=== PATIENT | female | born 1965 | race Caucasian/White ===

== ENCOUNTER → 2017-11-10 | Outpatient (CLI) | payer OTHER ==
[~2017-11-10] MED LIST: ACET-1256 PO; BACL10TA PO; CHOLCAP5 PO; GLAT1INJ SQ; METO50TA8 PO; NTRGSL/4 PO; SOLI10TA2 PO; SPIR25TA PO
--- NOTE | 2017-11-11 12:46 | MAMMOGRAPHY REPORT ---
BILATERAL DIGITAL SCREENING MAMMOGRAM TOMOSYNTHESIS WITH CAD: 11/10/2017 CLINICAL HISTORY: Routine screening. Patient has no complaints. TECHNIQUE: Breast tomosynthesis in addition to standard 2D mammography was performed. Current study was also evaluated with a Computer Aided Detection (CAD) system. COMPARISON: Comparison is made to exam dated: 11/07/2016 mammogram - [facility]. BREAST COMPOSITION: There are scattered areas of fibroglandular density in both breasts. FINDINGS: The parenchymal pattern is unchanged. No developing mass, architectural distortion or clus ter of suspicious microcalcifications is seen in either breast. IMPRESSION: ACR BI-RADS CATEGORY 2: BENIGN There is no mammographic evidence of malignancy. A 1 year screening mammogram is recommended. The pa tient will receive written notification of the results. Approximately 10% of breast cancers are not detected with mammography. A negative mammographic report should not delay biopsy if a clinically suggestive mass is present. Estephania Fernandez M.D. ay/:11/10/2017 16:14:50 Advertising Consultant: Jaci LOZADA(Jhonny)(M), [facility] letter sent: Normal 1/2 BI-RADS Code: ACR BI-RADS Category 2: Benign
== END | disposition home or self-care (01) ==
LOC: C.MAMM 11:19 → MERGE 11:25 → UNMERGE 11:25
PROVIDERS: ATTEND Obstetrics & Gynecology
DX: Z12.31 Encounter for screening mammogram for malignant neoplasm of breast (principal)

== ENCOUNTER → 2017-11-18 | Outpatient (CLI) | payer OTHER ==
[~2017-11-18] MED LIST changes: +GADAVIST IV PRN
--- NOTE | 2017-11-18 15:30 | DIAGNOSTIC IMAGING REPORT ---
THORACIC SPINE 3 VIEWS ROUTINE HISTORY: Pain. M54.14 Thoracic radiculopathy COMPARISON: None. FINDINGS: There is no fracture. No subluxation. Mild degenerative disc change. No evidence for compression deformity. IMPRESSION: Mild degenerative change. No acute process. The above report was generated using voice recognition software. It may contain grammatical, syntax or spelling errors. Electronically signed by: Conner Moreno M.D. 11/18/2017 3:29 PM Dictated Date/Time: 11/18/2017 3:28 PM
--- NOTE | 2017-11-18 17:11 | DIAGNOSTIC IMAGING REPORT ---
BRAIN COMBO FOR MS HISTORY: Demyelinating disorder G35 Multiple sclerosis TECHNIQUE: Multiplanar multisequence MRI of the brain was performed both before and after the intravenous administration of contrast. COMPARISON STUDY: 11/01/2016 FINDINGS: There are no areas of restricted diffusion to suggest acute infarction. The midline structures are intact. The paranasal sinuses are clear. The mastoid air cells are clear. The ventricles and sulci are within normal limits for age. There is no mass, hematoma, midline shift. The major vascular flow-voids at the skull base are well maintained. Postcontrast sequences show no areas of abnormal enhancement. Small focus of increased signal extreme posterior right optic radiations unchanged given differences in technique. No new or interval process. No evidence for abnormal postcontrast enhancement. IMPRESSION: 1. Small focus of increased signal posterior right optic radiations essentially unchanged from the prior study. 2. No evidence for new interval or progressive process. 3. No abnormal postcontrast enhancement. The above report was generated using voice recognition software. It may contain grammatical, syntax or spelling errors. Electronically signed by: Conner Moreno M.D. 11/18/2017 5:10 PM Dictated Date/Time: 11/18/2017 5:03 PM
--- NOTE | 2017-11-18 17:17 | DIAGNOSTIC IMAGING REPORT ---
MRI CERVICAL SPINE COMBO CLINICAL HISTORY: G35 Multiple sclerosis BILATERAL ARM AND HAND TINGLING. TECHNIQUE: Sagittal and axial T1, T2 and STIR images were obtained. Images were acquired before and after the administration of 10.1 cc of intravenous Gadavist. COMPARISON STUDY: 11/01/2016 There are no suspicious areas of marrow replacement. No intrinsic cervical cord lesions are visualized. C2-3: There is no evidence of disc bulge or focal herniation. There is no spinal or foraminal stenosis. C3-4: There is no evidence of disc bulge or focal herniation. There is no spinal or foraminal stenosis. C4-5: There is a small central disc protrusion. There is minimal effacement of the anterior subarachnoid space. There is no significant spinal or foraminal narrowing C5-6 :There is a small right posterior central disc protrusion with minimal secondary cord deformity. There is mild spinal canal narrowing. There is no significant foraminal narrowing C6-7: There is a minimal circumferential disc bulge. There is no definite acute spinal or foraminal stenosis C7-T1: There is no evidence of disc bulge or focal herniation. There is no evidence of spinal or foraminal stenosis. Postcontrast images reveal no pathologically enhancing lesions. IMPRESSION: 1. No cervical cord demyelinating plaques are visualized. No evidence of pathologic enhancement. 2. Small central disc protrusion at the C4-5 level, similar to the preceding study 3. Small right paracentral disc protrusion at the C5-6 level, similar to the prior study. Electronically signed by: Marco Rubio M.D. 11/18/2017 5:16 PM Dictated Date/Time: 11/18/2017 5:11 PM
== END | disposition home or self-care (01) ==
LOC: C.MRI 14:54
PROVIDERS: ATTEND Psychiatry & Neurology Neurology
DX: M54.14 Radiculopathy, thoracic region (principal); G35 Multiple sclerosis; M50.20 Other cervical disc displacement, unspecified cervical region

== ENCOUNTER → 2017-12-01 | Day surgery (SDC) | payer OTHER ==
[2017-11-19 15:00] VITALS: BMI 37.0
[~2017-12-01] VITALS: Ht 165.1 cm; Wt 101.8 kg
[~2017-12-01] MED LIST changes: -ACET-1256 PO; -GADAVIST IV PRN; +LIDOCAINE HCL 2% 2 ML VIAL (20MG/ML) ONE; +PROPOFOL IV EMULSION 10 MG/ML 20 ML VIAL ONE
[2017-12-01 13:54] VITALS: Ht 165.1 cm; Wt 101.8 kg
--- NOTE | 2017-12-01 14:28 | Endo History and Physical ---
History & Physical Date of Service: December 01, 2017. Chief Complaint: SCREENING Referring Physician: DR. HILLMAN History of Present Illness For colonoscopy Past Medical History Neurological Disorder, Arthritis, Hypertension Past Surgical History Hx Cardiac Surgery: No Hx Internal Defibrillator: No Hx Pacemaker: No Hx Abdominal Surgery: Yes (C section, yoon) Hx of Implantable Prosthesis: No Hx Cancer Surgery: No Hx Thoracic Surgery: No Hx Orthopedic: No Hx Urinary Tract Surgery: No Family History None Social History Smoking Status: Never Smoker Hx Substance Use: No Hx Alcohol Use: No Allergies Coded Allergies: Sulfa Antibiotics (Unverified Allergy, Mild, rash, 12/01/17) Current Medications Reported Home Medications Medications Dose Route/Sig Max Daily Dose Days Date Category Aldactone (Spironolactone) 25 Mg Tab 25 Mg PO DAILY 07/09/17 Reported Lioresal (Baclofen) 10 Mg Tab 20 Mg PO TID 02/06/17 Reported Toprol-Xl (Metoprolol Succinate) 50 Mg Tabcr 50 Mg PO DAILY 02/01/17 Reported Vitamin D3 (Cholecalciferol) 5,000 Unit Cap 5,000 Inter.unit PO DAILY 05/01/16 Reported Vesicare (Solifenacin) 10 Mg Tab 10 Mg PO DAILY 05/01/16 Reported Nitrostat (Nitroglycerin) 0.4 Mg Tab 0.4 Mg PO UD PRN 04/23/16 Reported Copaxone (Glatiramer Acetate) 40 Mg/Ml Inj 40 Mg SQ MWF 02/13/15 Reported Vital Signs Weight (Kilograms): 101.82 Height (Feet): 5 Height (Inches): 5 Date Time Temp Pulse Resp B/P (MAP) Pulse Ox O2 Delivery O2 Flow Rate FiO2 12/01/17 14:01 36.5 76 20 155/103 (120) 20 Room Air Physical Exam General Appearance: + obese Respiratory/Chest: Respiratory effort: no dyspnea Cardiovascular: Heart Auscultation: RRR Abdomen: Inspection & Palpation: soft Assessment and Plan For screening colonoscopy
--- NOTE | 2017-12-01 14:53 | Discharge Instructions ---
Endoscopy Patient Instructions Date / Procedure(s) Performed December 01, 2017. Colonoscopy Allergy Information Coded Allergies: Sulfa Antibiotics (Unverified Allergy, Mild, rash, 12/01/17) Discharge Date / Findings December 01, 2017. Hemorrhoids Medication Instructions Restart Stopped Medication(s): resume meds Reported Home Medications Medications Dose Route/Sig Max Daily Dose Days Date Category Aldactone (Spironolactone) 25 Mg Tab 25 Mg PO DAILY 07/09/17 Reported Lioresal (Baclofen) 10 Mg Tab 20 Mg PO TID 02/06/17 Reported Toprol-Xl (Metoprolol Succinate) 50 Mg Tabcr 50 Mg PO DAILY 02/01/17 Reported Vitamin D3 (Cholecalciferol) 5,000 Unit Cap 5,000 Inter.unit PO DAILY 05/01/16 Reported Vesicare (Solifenacin) 10 Mg Tab 10 Mg PO DAILY 05/01/16 Reported Nitrostat (Nitroglycerin) 0.4 Mg Tab 0.4 Mg PO UD PRN 04/23/16 Reported Copaxone (Glatiramer Acetate) 40 Mg/Ml Inj 40 Mg SQ MWF 02/13/15 Reported Provider Instructions Activity Restrictions - No exercising or heavy lifting for 24 hours. - Do not drink alcohol the day of the procedure. - Do not drive a car or operate machinery until the day after the procedure. - Do not make any important decisions or sign important papers in 24 hours after the procedure. Following Day: - Return to full activity which may include returning to work/school. Diet Start your diet with liquids and light foods (jello, soup, juice, toast). Then eat your usual diet if not nauseated. Treatment For Common After Affects For mild abdominal pain, bloating, or excessive gas: - Rest - Eat lightly - Lie on right side Follow-Up Information Follow-up with DR. HILLMAN as scheduled Anesthesia Information What You Should Know You have had a procedure that required some medicine to reduce anxiety and discomfort. This treatment is called moderate sedation. After receiving the treatment, you may be sleepy, but you will be able to breathe on your own. The effects of the treatment may last for several hours. Follow these instructions along with Activity/Diet recommendations noted above: * Do NOT do anything where dizziness or clumsiness would be dangerous. * Rest quietly at home today, then you can be up and about tomorrow. * Have a responsible person stay with you the rest of today. * You may have had an I.V. today. If so, you may take the dressing off later today. Recommendations Call your doctor if: * Trouble breathing * Continuous vomiting for more than 24 hours * Temperature above 101 degrees * Severe abdominal pain or bloating * Pain not relieved by pain medicine ordered * There is increased drainage or redness from any incision * A large amount of rectal bleeding greater than 2-3 tablespoons. (If you had a polyp/s removed or have hemorrhoids, a small amount of blood - from the rectum is to be expected.) * You have any unanswered questions or concerns. IN THE EVENT OF A SERIOUS EMERGENCY, GO TO THE NEAREST EMERGENCY ROOM Your discharge instructions were prepared by provider Arpan Heller. Patient Instructions Signature Page Danyelle Warren Patient (or Guardian) Signature/Date: I have read and understand the instructions given to me by my caregivers. Caregiver/RN/Doctor Signature/Date: The above-named patient and/or guardian has received patient instructions on this date. + Original Patient Signature Page (only) stays with chart. Please make copy for patient.
--- NOTE | 2017-12-01 14:56 | GI REPORT ---
Patient Name: Danyelle Warren Procedure Date: 12/01/2017 2:34 PM Date of : 1965 Admit Type: Outpatient Age: 52 Gender: Female Attending MD: Arpan Heller MD Procedure: Colonoscopy Providers: Arpan Heller MD Referring MD: Alexia Hutchison Indications: Screening for colorectal malignant neoplasm Medicines: Propofol total dose 400 mg IV, Lidocaine 40 mg IV Complications: No immediate complications. Estimated Blood Loss: Estimated blood loss: none. Procedure: Pre-Anesthesia Assessment: - Prior to the procedure, a History and Physical was performed, and patient medications, allergies and sensitivities were reviewed. The patient's tolerance of previous anesthesia was reviewed. - The risks and benefits of the procedure and the sedation options and risks were discussed with the patient. All questions were answered and informed consent was obtained. After I obtained informed consent, the scope was passed under direct vision. Throughout the procedure, the patient's blood pressure, pulse, and oxygen saturations were monitored continuously. The scope was introduced through the anus and advanced to the cecum, identified by appendiceal orifice and ileocecal valve. The colonoscopy was performed without difficulty. The patient tolerated the procedure well. The quality of the bowel preparation was excellent. Findings: Non-bleeding internal hemorrhoids were found during endoscopy. The hemorrhoids were mild. Impression: - Non-bleeding internal hemorrhoids. - No specimens collected. Recommendation: - Discharge patient to home (ambulatory). - Continue present medications. - Repeat colonoscopy in 10 years for screening purposes. - Return to primary care physician PRN. Arpan Heller M.D. Arpan Heller MD 12/01/2017 2:55:45 PM This report has been signed electronically. Note Initiated On: 12/01/2017 2:34 PM Number of Addenda: 0 I attest to the content of the Intraoperative Record and orders documented therein, exceptions below {[id number]}
--- NOTE | 2017-12-01 15:12 | Anesthesiology Progress Note ---
Anesthesia Post Op Note Date & Time December 01, 2017 at 15:11 Vital Signs Pain Intensity: 0 Vital Signs Past 12 Hours Date Time Temp Pulse Resp B/P (MAP) Pulse Ox O2 Delivery O2 Flow Rate FiO2 12/01/17 14:54 73 20 121/77 (92) 97 Room Air 12/01/17 14:01 36.5 76 20 155/103 (120) 20 Room Air Notes Mental Status: alert / awake / arousable, participated in evaluation Pt Amnestic to Procedure: Yes Nausea / Vomiting: adequately controlled Pain: adequately controlled Airway Patency, RR, SpO2: stable & adequate BP & HR: stable & adequate Hydration State: stable & adequate Anesthetic Complications: no major complications apparent
[2017-12-01 15:28] VITALS: BP 139/102; PULSE 67; O2SAT 99
== END | disposition home or self-care (01) ==
LOC: C.GI 13:38
PROVIDERS: ATTEND Internal Medicine Gastroenterology
DX: Z12.11 Encounter for screening for malignant neoplasm of colon (principal); K64.8 Other hemorrhoids; M19.90 Unspecified osteoarthritis, unspecified site; G35 Multiple sclerosis; I10 Essential (primary) hypertension; Z88.2 Allergy status to sulfonamides; Z79.899 Other long term (current) drug therapy

== ENCOUNTER 2025-05-09 11:06 | Observation (INO) ==
[2025-05-09 11:55] LABS: Hematocrit (blood only) 40.2 % (37.0-47.0); Hemoglobin 13.0 g/dl (12.0-16.0); Immature Granulocytes # (auto) 0.10 K/uL (0.01-0.20); Immature Granulocytes % (auto) 0.6 %; Mean Corpuscular Hemoglobin 29.0 pg (25.0-34.0); Mean Corpuscular Volume 89.5 fL (80.0-100.0); Platelet Count 419 K/uL (130-400); RDW Standard Deviation 44.6 fL (36.4-46.3); Red Blood Count 4.49 M/uL (4.20-5.40); White Blood Count 17.33 K/ul (4.8-10.8)
[2025-05-09] MEDS: SODIUM CHLORIDE 0.9% 500 ML IV ONE (12:15)
--- NOTE | 2025-05-09 12:15 | Emergency Department Note ---
Impression & Plan Recurrent pneumonia, Immunocompromised, Multiple sclerosis ED Provider Note NAME: STEPHANIE IRVING AGE: 59 SEX: F : 1965 ARRIVES VIA: Walk-In INFORMANT: Patient ED PROVIDER(S): Marcelo Tobias MD CHIEF COMPLAINT: Shortness of breath PLAN: Disposition: Admit MEDICAL DECISION MAKING: The present pleasant 59-year-old woman with a past medical history of MS on ocrelizumab who presents to the emergency department via walk-in accompanied by his partner for evaluation of worsening cough congestion shortness of breath in setting of being treated with the patient outpatient Augmentin and azithromycin 2 weeks ago without any improvement. Patient denies any measured fevers. She denies nausea, vomiting or diarrhea. She denies any urinary symptoms. On evaluation, the patient is no distress, afebrile heart in the 90s and blood pressure 160/100s vital signs otherwise stable. She appears euvolemic to dry. She exhibits wheezes of bilateral lung kirk with intermittent rhonchi. EKG without overt acute ischemia. CXR negative for acute cardiopulmonary process per my personal preliminary review/interpretation. WBC 17K with neutrophilia and a left shift. Lactic acid increased from normal 6 weeks ago. H/H within normal limits. Platelets of 40 19K, nonspecific and likely reactive. Chemistry without metabolic acidosis. Electrolytes and LFTs unremarkable. High-sensitivity troponin 12.5, within normal limits. Lipase is not elevated. Procalcitonin is mildly elevated at 0.77, TSH within normal limits. D-dimer was elevated at 1130 and so CTA of the chest was obtained. CTA of the chest was negative for PE however patchy right lung ground glass opacities are suspicious for infection/pneumonia. Given the patient was recently treated with Augmentin and azithromycin without improvement in symptoms in setting of any compromise status and patient agrees to plan for admission for further management. Blood cultures obtained and treatment initiated with IV Zosyn and doxycycline. MRSA swab is pending. Case was discussed with Dr. Low, [facility] hospitalist, who will evaluate the patient for admission. Further management per admitting team. Triage Nursing notes reviewed and agree them. Prior/external medical records reviewed Vital Signs: reviewed Differential diagnosis: Reactive airway disease, pneumonia, pneumothorax, COPD, CHF, infections, cardiac ischemia, pulmonary embolism, musculoskeletal, gastrointestinal, as well as other pathologies. ER treatment provided: See below. Diagnostics interpreted by me: Cardiac Monitoring: An order for continuous cardiac monitoring was placed and demonstrated normal sinus rhythm, 75 bpm, no ectopy. Laboratory studies: See below Imaging studies: See below Consultation(s): Case was discussed with Dr. Low, [facility] hospitalist, who will evaluate the patient for admission. HPI: Per MDM. ROS: See above HPI for pertinent positives & negatives. A total of 10 systems reviewed and were otherwise negative. VITALS:See Below PHYSICAL EXAMINATION: GENERAL: Awake, alert, in no distress HENT: Normocephalic, atraumatic. Oropharynx with dry mucous membranes and otherwise unremarkable. EYES: Normal conjunctiva. Sclera non-icteric. NECK: Supple. No nuchal rigidity. FROM. No JVD. RESPIRATORY: Wheezes of bilateral lung kirk with intermittent rhonchi. Normal respiratory effort. CARDIAC: Regular rate, normal rhythm. Extremities warm and well perfused. Pulses equal. ABDOMEN: Soft, non-distended. No tenderness to palpation. No rebound or guarding. No masses. MUSCULOSKELETAL: Chest examination reveals no tenderness. The back is symmetrical on inspection without obvious abnormality. There is no CVA tenderness to palpation. No joint edema. LOWER EXTREMITIES: Calves are equal size bilaterally and non-tender. No edema. No discoloration. NEURO: Normal sensorium. No sensory or motor deficits noted. SKIN: No rash or jaundice noted. Marcelo Tobias MD Past Med/Surg History Problem List Immunocompromised (Acute) Recurrent pneumonia (Acute) UTI (urinary tract infection) Obesity Short of breath on exertion Recurrent infections Vitamin D deficiency Hypertension (Acute) Multiple sclerosis (Chronic) Meralgia paresthetica of both lower extremities Sensory polyneuropathy Lumbar radiculopathy (Acute) Neurogenic bladder Medical History COVID-19 Immune thrombocytopenic purpura Fatty infiltration of liver LVH (left ventricular hypertrophy) "acts up with increased blood pressure"; has not seen cardio in "awhile," had had 2 stress tests with no issues Overactive bladder due to her MS History of COVID-19 06/2021, home test and test at PCP, not hosp; went to the ER w/cough and shortness of breath, fever, body aches>resolved w/exception of shortness of breath occasionally with her "MS hug" History of ITP Multiple sclerosis "gets the MS hug sometimes and has the nitroglycerin to help with the chest pain" Hypertension Surgical History Hx of thumb surgery for tendonitis Hx of tubal ligation Hx of colonoscopy Hx of wisdom tooth extraction Hx of bilateral hip replacements Right hip 12/2020, left hip 03/2021 Hx of section x1 Hx of cholecystectomy Family History Grandmother (Maternal) Breast cancer Denies family history of Ovarian cancer Colorectal cancer Social History Smoking Status: Never smoker Second Hand Exposure: No; Do You Dip or Chew Tobacco: No; Hx Alcohol Use: Yes Hx Substance Use: No Preferred Language: Turkish Communication Ability: Effective Gas Charger Required: No Beliefs That Will Affect Care: None marital status: Current Living Situation: Spouse and Family current occupational status: employed Feels Safe at Home: Yes Assistive Devices: Glasses and Hearing Aid - Bilateral Allergies Allergies Allergy/AdvReac Type Severity Reaction Status Date / Time Sulfa (Sulfonamide Allergy Mild Rash Verified 04/22/25 11:18 Antibiotics) lisinopril AdvReac Intermediate Palpitation Verified 04/22/25 11:18 s Home Meds Home Medications Medication Instructions Recorded Confirmed nitroglycerin 0.4 mg sublingual 0.4 mg sublingual UD PRN Chest 04/23/16 05/09/25 tablet (Nitrostat) Pain ##0 cholecalciferol (vitamin D3) 125 5,000 unit PO QAM ##0 05/01/16 05/09/25 mcg (5,000 unit) capsule metoprolol succinate 50 mg 50 mg PO QAM ##90 02/01/17 05/09/25 tablet,extended release 24 hr Previous Rx's Medication Instructions Recorded ocrelizumab 30 mg/mL intravenous 600 mg (20 mL) IV .COMPLEX #20 mL 01/09/24 solution (Ocrevus) solifenacin 10 mg tablet (Vesicare) 10 mg PO QAM #90 tabs 10/04/24 gabapentin 300 mg capsule 300 mg PO QID 90 days #360 caps 11/16/24 ondansetron HCl 4 mg tablet 4 mg PO BID PRN nausea and 02/14/25 vomiting #60 tabs meclizine 25 mg tablet 25 mg PO BID PRN dizziness #30 tabs 02/21/25 baclofen 20 mg tablet 20 mg PO TID 90 days #270 tabs 03/07/25 albuterol sulfate 90 mcg/actuation 1 inh inhalation Q6H PRN shortness 04/27/25 aerosol inhaler of breath or wheezing #18 grams budesonide-formoterol HFA 80 2 puff inhalation BID #10.2 grams 04/27/25 mcg-4.5 mcg/actuation aerosol inhaler (Symbicort) Results & Data (ED) Vital Signs Vital Signs - 24 hr 05/09/25 11:12 05/09/25 11:35 05/09/25 11:35 Temperature 36.4 C L Temperature Source Temporal Artery Scan Pulse Rate 93 H Pulse Rate [Apical] 81 Pulse Rhythm Regular Pulse Strength Normal Respiratory Rate 20 18 Respiratory Effort / Characteristics Non-Labored Spontaneous Non-Labored Spontaneous Respiratory Depth Normal Normal Respiratory Pattern Regular Blood Pressure 160/101 H Blood Pressure [Right Arm] 147/99 H Blood Pressure Mean 120 Blood Pressure Mean [Right Arm] 115 Blood Pressure Position Sitting Blood Pressure Position [Right Arm] Sitting Pulse Oximetry 96 95 96 Oxygen Delivery Method Room Air Room Air Room Air Sepsis Recent Fever Within 48 Hours No Sepsis New/Unexplained Change in Mental Status N/A Sepsis Action Taken by Nursing No Action Required 05/09/25 12:06 05/09/25 12:10 05/09/25 12:40 Temperature Temperature Source Pulse Rate 83 Pulse Rate [Apical] 71 Pulse Rhythm Pulse Strength Respiratory Rate 18 Respiratory Effort / Characteristics Non-Labored Spontaneous Respiratory Depth Normal Respiratory Pattern Regular Blood Pressure Blood Pressure [Right Arm] 144/90 H Blood Pressure Mean Blood Pressure Mean [Right Arm] 108 Blood Pressure Position Blood Pressure Position [Right Arm] Sitting Pulse Oximetry 97 100 Oxygen Delivery Method Room Air Room Air Sepsis Recent Fever Within 48 Hours Sepsis New/Unexplained Change in Mental Status Sepsis Action Taken by Nursing 05/09/25 14:00 05/09/25 16:00 05/09/25 16:58 Temperature Temperature Source Pulse Rate 75 Pulse Rate [Apical] 83 79 Pulse Rhythm Pulse Strength Respiratory Rate 18 16 Respiratory Effort / Characteristics Non-Labored Spontaneous Respiratory Depth Normal Respiratory Pattern Regular Blood Pressure Blood Pressure [Right Arm] 157/98 H 185/110 H Blood Pressure Mean Blood Pressure Mean [Right Arm] 117 135 Blood Pressure Position Blood Pressure Position [Right Arm] Pulse Oximetry 94 94 Oxygen Delivery Method Room Air Room Air Sepsis Recent Fever Within 48 Hours Sepsis New/Unexplained Change in Mental Status Sepsis Action Taken by Nursing Laboratory Data Attestation: I reviewed the patient's lab results. 05/09/25 18:05 05/09/25 11:28 Lab Results 05/09/25 05/09/25 Range/Units 11:28 17:14 WBC 17.33 H (4.8-10.8) K/ul RBC 4.49 (4.20-5.40) M/uL Hgb 13.0 (12.0-16.0) g/dl Hct 40.2 (37.0-47.0) % MCV 89.5 (80.0-100.0) fL MCH 29.0 (25.0-34.0) pg MCHC 32.3 (32.0-36.0) g/dL RDW Std Deviation 44.6 (36.4-46.3) fL RDW Coeff of Ruth 13.5 (11.5-14.5) % Plt Count 419 H (130-400) K/uL MPV 9.7 (9.4-12.4) fL Immature Gran % (Auto) 0.6 % Neut % (Auto) 80.7 % Lymph % (Auto) 8.1 % [place] % (Auto) 10.1 % Eos % (Auto) 0.3 % Baso % (Auto) 0.2 % Neut # (Auto) 13.97 H (1.40-6.50) K/uL Lymph # (Auto) 1.41 (1.20-3.40) K/uL [place] # (Auto) 1.75 H (0.11-0.59) K/uL Eos # (Auto) 0.06 (0.00-0.50) K/uL Baso # (Auto) 0.04 (0.00-0.20) K/uL Immature Gran # (Auto) 0.10 (0.01-0.20) K/uL PT 11.1 (9.0-12.0) Seconds INR 1.1 (0.9-1.1) D-Dimer 1130 H* (0-500) ug/L FEU Sodium 140 (136-145) mmol/L Potassium 3.9 (3.5-5.1) mmol/L Chloride 104 (98-107) mmol/L Carbon Dioxide 27 (21-32) mmol/L Anion Gap 9 (3-11) BUN 20 (6-23) mg/dl Creatinine 1.09 (0.6-1.2) mg/dl Est Cr Clr Drug Dosing 69.5 ml/min eGFR 59.25 BUN/Creatinine Ratio 18.3 (10-20) Glucose 108 H (70-99(Fasting)) mg/dl Calcium 9.5 (8.6-10.3) mg/dl Magnesium 2.3 (1.7-2.4) mg/dl Total Bilirubin 1.0 (0.2-1.0) mg/dl AST 26 (13-39) U/L ALT 33 (7-52) U/L Alkaline Phosphatase 208 H (34-104) U/L Troponin I High Sens 12.5 (0-14) pg/ml B-Natriuretic Peptide 31 (0-100) pg/ml Total Protein 7.5 (6.0-8.3) gm/dl Albumin 3.9 (3.4-5.0) gm/dl Globulin 3.6 (2.5-4.0) gm/dl Albumin/Globulin Ratio 1.1 (0.9-2) Lipase 8 L (11-82) U/L Procalcitonin 0.77 H (0-0.5) ng/ml TSH 3.363 (0.300-4.500) uIu/ml Urine Color Dark Yellow Urine Appearance Turbid A (Clear) Urine pH 6.0 (4.5-7.5) Ur Specific [place] 1.022 (1.000-1.030) Urine Protein 2+ H (Negative) Urine Glucose (UA) Negative (Negative) Urine Ketones Trace H (Negative) Urine Blood 1+ H (Negative) Urine Nitrite Negative (Negative) Urine Bilirubin 1+ H (Negative) Urine Urobilinogen Negative (Negative) Ur Leukocyte Esterase 3+ H (Negative) Urine WBC (Auto) >50 H (0-5) /hpf Urine RBC (Auto) 3-5 H (0-2) /hpf U Hyaline Cast (Auto) 0-2 (0-2) /lpf U Epithel Cells (Auto) 3-5 H (0-2) /hpf Urine Bacteria (Auto) 4+ H (None Seen) Urine Mucus Present A (None Prsent) Urine Comment Nasal Screen MRSA (PCR) Negative (Negative) Adenovirus (PCR) Not Detected (NotDetected) B. pertussis DNA (PCR) Not Detected (NotDetected) B.parapertussis DNA PCR Not Detected (NotDetected) C. pneumoniae DNA (PCR) Not Detected (NotDetected) Coronavirus OC43 (PCR) Not Detected (NotDetected) Coronavirus HKU1 (PCR) Not Detected (NotDetected) Coronavirus 229E (PCR) Not Detected (NotDetected) SARS-CoV-2 (PCR) Not Detected (NotDetected) Coronavirus NL63 (PCR) Not Detected (NotDetected) Human Metapneumovir PCR Not Detected (NotDetected) Influenza Type A (PCR) Not Detected (NotDetected) Influenza Type B (PCR) Not Detected (NotDetected) M. pneumoniae (PCR) Not Detected (NotDetected) Parainfluenza 1 (PCR) Not Detected (NotDetected) Parainfluenza 2 (PCR) Not Detected (NotDetected) Parainfluenza 3 (PCR) Not Detected (NotDetected) Parainfluenza 4 (PCR) Not Detected (NotDetected) RSV (PCR) Not Detected (NotDetected) Entero/Rhino (PCR) Not Detected (NotDetected) Administered Medications Sodium Chloride (Sodium Chlor 7% 4 Ml Neb) 4 ml NEB BIDR [facility] Stop: 06/08/25 18:59 Last Admin: 05/09/25 19:58 Dose: 4 ml Documented By: [id number] Discontinued Medications Albuterol (Albut/Ipratrop 3mg/0.5mg Neb 3 Ml Vial) 3 ml NEB NOW STA; Protocol Stop: 05/09/25 12:16 Last Admin: 05/09/25 12:36 Dose: 3 ml Documented By: SKJes Guaifenesin (Guaifenesin 600 Mg Tabcr) 1,200 mg PO NOW STA Stop: 05/09/25 12:16 Last Admin: 05/09/25 12:36 Dose: 1,200 mg Documented By: DUNG Hydralazine HCl (Hydralazine Hcl 20 Mg/Ml Vial) 25 mg IV NOW STA Stop: 05/09/25 17:58 Last Admin: 05/09/25 18:09 Dose: 25 mg Documented By: DONNA Sodium Chloride (Nss) 500 mls @ 999 mls/hr IV .Q31M ONE Stop: 05/09/25 12:09 Last Infusion: 05/09/25 12:54 Dose: Infused Documented By: Admin: 05/09/25 12:15 Dose: 999 mls/hr Documented By: SANJANA Piperacillin Sod/Tazobactam Sod (Zosyn) 4.5 gm in 100 mls @ 200 mls/hr IV NOW ONE; Protocol Stop: 05/09/25 17:13 Last Infusion: 05/09/25 19:04 Dose: Infused Documented By: Admin: 05/09/25 18:11 Dose: 200 mls/hr Documented By: DONNA Doxycycline Hyclate 100 mg/ (Dextrose) 100 mls @ 50 mls/hr IV NOW STA Stop: 05/09/25 18:43 Last Admin: 05/09/25 18:56 Dose: 50 mls/hr Documented By: DONNA Sodium Chloride (Nss) 1,000 mls @ 999 mls/hr IV .Q1H1M ONE Stop: 05/09/25 17:46 Last Infusion: 05/09/25 19:04 Dose: Infused Documented By: Admin: 05/09/25 17:16 Dose: 999 mls/hr Documented By: DONNA Ioversol (Optiray 320 125ml) 120 ml IV ONCE ONE Stop: 05/09/25 14:55 Last Admin: 05/09/25 14:54 Dose: 120 ml Documented By: BRTam Lorazepam (Lorazepam 1 Mg/1 Ml Syr Ed Inj Use) 0.5 mg IV ONE STA Stop: 05/09/25 16:45 Last Admin: 05/09/25 17:56 Dose: 0.5 mg Documented By: DONNA Methylprednisolone (Methylprednisolone 125 Mg/2 Ml Vial) 125 mg IV NOW STA Stop: 05/09/25 12:16 Last Admin: 05/09/25 12:36 Dose: 125 mg Documented By: DUNG Rosuvastatin Calcium (Rosuvastatin Calcium 20 Mg Tab) 20 mg PO NOW STA Stop: 05/09/25 18:00 Last Admin: 05/09/25 18:57 Dose: 20 mg Documented By: DONNA Sucralfate (Sucralfate 1 Gm/10 Ml Udc) 1 gm PO NOW STA Stop: 05/09/25 16:45 Last Admin: 05/09/25 17:55 Dose: 1 gm Documented By: DONNA Imaging Data Radiologist's Impression: Chest X-Ray 05/09/25 11:38 XR chest 1V portable CLINICAL HISTORY: Chest pain, nonspecific COMPARISON STUDY: 04/19/2025 FINDINGS: There is mild cardiomegaly with pulmonary vascular congestion. Inspiration is shallow. No consolidation or pleural effusion seen. No pneumothorax. IMPRESSION: Mild CHF. ACT 112: Negative or not required by law. Electronically signed by: Anton Arceo M.D. 05/09/2025 12:45 PM Chest CTA 05/09/25 13:56 CT angio chest PE protocol CT DOSE: 685.33 mGy.cm HISTORY: 59 years-old Female with sob, elevated d-dimer, r/o PE. Acute shortness of breath with elevated d-dimer TECHNIQUE: Multiple CTA images of the chest were obtained after the intravenous administration of 120 ml Optiray. Coronal and sagittal MIPS were obtained from the axial data set and were submitted for review. All measurements were obtained according to NASCET criteria. A dose lowering technique was utilized adhering to the principles of ALARA. COMPARISON: Chest radiograph of same day, CTA chest 07/09/2021, CT abdomen and pelvis 02/01/2017 FINDINGS: CTA: Heart is mildly enlarged. No pericardial effusion. No thoracic aortic aneurysm or dissection. There is patency of the imaged great vessels. Unremarkable pulmonary artery. No pulmonary emboli are seen. CT CHEST: Unremarkable thyroid. Subcentimeter mediastinal and hilar lymph nodes, likely reactive. No pneumothorax, pleural effusion or overt pulmonary edema. An dependent subsegmental bibasilar densities favor atelectasis. Focal groundglass opacities are noted within the superior segment right lower lobe with additional patchy right middle lobe ground glass foci. On nonspecific stranding in the right retroperitoneum, posterior to the right adrenal gland, new from 2017. Cholecystectomy. There is mild right hemidiaphragmatic elevation. Unremarkable soft tissues. No acute fracture. IMPRESSION: 1. No definite pulmonary emboli identified. 2. Mild patchy right lung groundglass opacities, likely infectious or inflammatory. 3. Mild cardiomegaly. ACT 112: Negative or not required by law. The above report was generated using voice recognition software. It may contain grammatical, syntax or spelling errors. Electronically signed by: Jaya Snell M.D. 05/09/2025 3:32 PM Discharge Plan Visit Data Chief Complaint: Shortness of Breath/Dyspnea Stated Complaint: TROUBLE BREATHING, CHEST PAIN, COUGH ED Provider: Marcelo Tobias Discharge Problem: Recurrent pneumonia, Immunocompromised, Multiple sclerosis Patient Disposition: Admitted As Inpatient Condition: Fair Discharge Instructions Interventions: ED Discharge Assessment Last Done: 05/09/25 20:54
[2025-05-09 12:19] LABS: Alanine Aminotransferase 33.0 U/L (7-52); Albumin Globulin Ratio 1.1 (0.9-2); Albumin Level 3.9 gm/dl (3.4-5.0); Alkaline Phosphatase 208.0 U/L (34-104); Anion Gap 9.0 (3-11); Bilirubin,Total 1.0 mg/dl (0.2-1.0); Blood Urea Nitrogen 20.0 mg/dl (6-23); Calcium 9.5 mg/dl (8.6-10.3); Carbon Dioxide 27.0 mmol/L (21-32); Chloride 104.0 mmol/L (98-107); Creatinine Clr Calc Pharmacy 69.5 ml/min; Globulin 3.6 gm/dl (2.5-4.0); Glucose 108.0 mg/dl (70-99(Fasting)); Lipase 8.0 U/L (11-82); Magnesium 2.3 mg/dl (1.7-2.4); Potassium 3.9 mmol/L (3.5-5.1); Sodium 140.0 mmol/L (136-145); Total Protein 7.5 gm/dl (6.0-8.3)
[2025-05-09 12:34] LABS: Thyroid Stimulating Hormone 3.363 uIu/ml (0.300-4.500)
[2025-05-09 12:35] LABS: INR 1.1 (0.9-1.1); Prothrombin Time 11.1 Seconds (9.0-12.0)
[2025-05-09] MEDS: ALBUT/IPRATROP 3MG/0.5MG NEB 3 ML VIAL NEB STA (12:36)
[2025-05-09] MEDS: guaiFENesin 600 MG TABCR PO STA (12:36)
--- NOTE | 2025-05-09 12:46 | XRay Report ---
XR chest 1V portable CLINICAL HISTORY: Chest pain, nonspecific COMPARISON STUDY: 04/19/2025 FINDINGS: There is mild cardiomegaly with pulmonary vascular congestion. Inspiration is shallow. No c onsolidation or pleural effusion seen. No pneumothorax. IMPRESSION: Mild CHF. ACT 112: Negative or not required by law. Electronically signed by: Anton Arceo M.D. 05/09/2025 12:45 PM
[2025-05-09 12:47] LABS: Appearance Urine Turbid (Clear); Bacteria Urine Automated 4+ (None Seen); Glucose Urine UA Negative (Negative); WBC Urine Automated >50 /hpf (0-5)
[2025-05-09 13:06] LABS: Chlamydia pneumoniae PCR Not Detected (NotDetected); Coronavirus 229E PCR Not Detected (NotDetected); Coronavirus CoV-2 (COVID19)PCR Not Detected (NotDetected); Coronavirus HKU1 PCR Not Detected (NotDetected); Coronavirus NL63 PCR Not Detected (NotDetected); Coronavirus OC43PCR Not Detected (NotDetected); Human Metapneumovirus PCR Not Detected (NotDetected); Parainfluenza Virus 1 PCR Not Detected (NotDetected); Parainfluenza Virus 2 PCR Not Detected (NotDetected); Parainfluenza Virus 3 PCR Not Detected (NotDetected); Parainfluenza Virus 4 PCR Not Detected (NotDetected); Respiratory Syncytial VirusPCR Not Detected (NotDetected); Rhinovirus/Enterovirus PCR Not Detected (NotDetected)
[2025-05-09 13:12] LABS: Cast Urine Automated 0-2 /lpf (0-2)
[2025-05-09] MEDS: OPTIRAY 320 125ml IV ONE (14:54)
--- NOTE | 2025-05-09 15:34 | CT Scan Report ---
CT angio chest PE protocol CT DOSE: 685.33 mGy.cm HISTORY: 59 years-old Female with sob, elevated d-dimer, r/o PE. Acute shortness of breath with edith vated d-dimer TECHNIQUE: Multiple CTA images of the chest were obtained after the intravenous administration of 120 ml Optiray. Coronal and sagittal MIPS were obtained from the axial data set and were submitted for review. All measurements were obtained according to NASCET criteria. A dose lowering technique was u tilized adhering to the principles of ALARA. COMPARISON: Chest radiograph of same day, CTA chest 07/09/2021, CT abdomen and pelvis 02/01/2017 FINDINGS: CTA: Heart is mildly enlarged. No pericardial effusion. No thoracic aortic aneurysm or dissection. There i s patency of the imaged great vessels. Unremarkable pulmonary artery. No pulmonary emboli are seen. CT CHEST: Unremarkable thyroid. Subcentimeter mediastinal and hilar lymph nodes, likely reactive. No pneumothor ax, pleural effusion or overt pulmonary edema. An dependent subsegmental bibasilar densities favor at electasis. Focal groundglass opacities are noted within the superior segment right lower lobe with ad ditional patchy right middle lobe ground glass foci. On nonspecific stranding in the right retroperitoneum, posterior to the right adrenal gland, new from 2017. Cholecystectomy. There is mild right hemidiaphragmatic elevation. Unremarkable soft tissues. N o acute fracture. IMPRESSION: 1. No definite pulmonary emboli identified. 2. Mild patchy right lung groundglass opacities, likely infectious or inflammatory. 3. Mild cardiomegaly. ACT 112: Negative or not required by law. The above report was generated using voice recognition software. It may contain grammatical, syntax o r spelling errors. Electronically signed by: Jaya Snell M.D. 05/09/2025 3:32 PM
[2025-05-09] MEDS: SODIUM CHLORIDE 0.9% 1,000 ML IV ONE (17:16)
[2025-05-09] MEDS: SUCRALFATE 1 GM/10 ML UDC PO STA (17:55)
[2025-05-09] MEDS: LORazepam 1 MG/1 ML SYR ED Inj Use IV STA (17:56)
--- NOTE | 2025-05-09 17:57 | History & Physical Report ---
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 she's been on ocrevus for multiple sclerosis; since mar 2025, she's been having shortness of breath, greenish sputum, coughing and sinus pressure she did not improved with augmentin and zpack. in addition, she saw pulmonary Dr. Pacheco on 04/27/2025 and maintain on symbicort, she's s/p spirometry on 05/09/2025, she was having significant chest pain episode, high d-dimer and CTA negative for PE she was started on zosyn, doxycycyline, given she failed several oral regime for pneumonia; she was referral for inpatient admission for IV antibiotics, chest pain evaluation, she's has poor functional status, limited assess for specialist, and at risk for respiratory decompensation, worsening chest pain, 1. acute pneumonia 2. hypertensive urgency 3. chest pain episode 4. recurrent pneumonia since mar 2025 5. MS on ocrevus 6. neuropathy 7. hx of fatty liver 9. left ventricular hyertrophy 10. ?? hx of ITP 1. acute pneumonia, IV cefepime, doxycycyline, f/u on nasal MRSA, legionelle and strept antigen hypertonic saline, mucinex, and duoneb nebulizer 2. chest pain episode, statin, aspirin, f/u on echo to r/o WMA 3. hypertensive urgency, pain control with tramadol PRN hydralazine 25mg IV 4. recurrent PNA, she will need repeat CT chest in 2-3 months she was following with Dr. Pacheco 5. MS, on ocrevus spoke with neurology Dr. Martinez, who is agreeable for holding ocrevus she's on baclofen 20mg TID she's on gabapentin 300 TID for polyneuropathy 6. hypertension, she's on metoprolol XL 50mg daily 7. chronic dizziness, she's on MRN meclizine 25mg PRN 8. low vitamin D, vitamin C 5000 unit daily diet: regular code status: full code DVT prophylaxis: heparin (2) Immunocompromised: History of Present Illness Chief Complaint: recurrent PnA since early mar CTA found right lung groundglass opacity with WBC of 17-18 chest pain episode Primary Care Provider: Lili Mosquera Danyelle Gibson is a 59 yo woman with PMH of MS (on ocrevus), obesity, ?? 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 since mar 2025, she's been having recurrent shortness of breath, greenish sputum, and wheezing and sinus pressure, she's was seeing pulmonary Dr. 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 she's been on symbicort since mar 2025, she's been having recurrent shortness of breath, congestion, sinus pressure and greenish sputum she was treated with augmentin and zpack but has limited improvement. on 05/09/2025, she developed chest discomfort, elevated d-dimer and came to our ED her CTA show right side pneumonia, WBC of 17, given she's has unstable blood pressure of 190/110, failed oral antibiotics, and inhale steroid she was referral to admission for IV antibiotics, hypertonic saline, cardiac evaluation she was started on zosyn by our ED collegue on interview; she's denied any palpitation for her dyspnea of breathing, denied muscle achiness, denied traveling, denied any pet exposure. no diarrhea. no sick contact no hx of TB Allergies Allergy/AdvReac Type Severity Reaction Status Date / Time Sulfa (Sulfonamide Allergy Mild Rash Verified 04/22/25 11:18 Antibiotics) lisinopril AdvReac Intermediate Palpitation Verified 04/22/25 11:18 s Home Medications Medication Instructions Recorded Confirmed Type nitroglycerin 0.4 mg sublingual 0.4 mg sublingual UD PRN Chest 04/23/16 05/09/25 History tablet (Nitrostat) Pain ##0 cholecalciferol (vitamin D3) 125 5,000 unit PO QAM ##0 05/01/16 05/09/25 History mcg (5,000 unit) capsule metoprolol succinate 50 mg 50 mg PO QAM ##90 02/01/17 05/09/25 History tablet,extended release 24 hr ocrelizumab 30 mg/mL intravenous 600 mg (20 mL) IV .COMPLEX #20 mL 01/09/24 05/09/25 Rx solution (Ocrevus) solifenacin 10 mg tablet (Vesicare) 10 mg PO QAM #90 tabs 10/04/24 05/09/25 Rx gabapentin 300 mg capsule 300 mg PO QID 90 days #360 caps 11/16/24 05/09/25 Rx ondansetron HCl 4 mg tablet 4 mg PO BID PRN nausea and 02/14/25 05/09/25 Rx vomiting #60 tabs meclizine 25 mg tablet 25 mg PO BID PRN dizziness #30 tabs 02/21/25 05/09/25 Rx baclofen 20 mg tablet 20 mg PO TID 90 days #270 tabs 03/07/25 05/09/25 Rx albuterol sulfate 90 mcg/actuation 1 inh inhalation Q6H PRN shortness 04/27/25 05/09/25 Rx aerosol inhaler of breath or wheezing #18 grams budesonide-formoterol HFA 80 2 puff inhalation BID #10.2 grams 04/27/25 05/09/25 Rx mcg-4.5 mcg/actuation aerosol inhaler (Symbicort) Past Med/Surg History Problem List (Updated 05/09/25 @ 17:50 by Andrea Low DO) Immunocompromised Recurrent pneumonia UTI (urinary tract infection) Obesity Short of breath on exertion Recurrent infections Vitamin D deficiency Hypertension (Acute) Multiple sclerosis (Chronic) Meralgia paresthetica of both lower extremities Sensory polyneuropathy Lumbar radiculopathy (Acute) Neurogenic bladder Medical History COVID-19 Immune thrombocytopenic purpura Fatty infiltration of liver Obesity LVH (left ventricular hypertrophy) Overactive bladder History of COVID-19 History of ITP Multiple sclerosis Hypertension Surgical History Hx of thumb surgery Hx of tubal ligation Hx of colonoscopy Hx of wisdom tooth extraction Hx of bilateral hip replacements Hx of section Hx of cholecystectomy Family History Grandmother (Maternal) Breast cancer Denies family history of Ovarian cancer Colorectal cancer Social History Smoking Status: Never smoker Second Hand Exposure: No; Do You Dip or Chew Tobacco: No; Hx Alcohol Use: Yes Hx Substance Use: No Preferred Language: Romanian Communication Ability: Effective Spd Tech Required: No Beliefs That Will Affect Care: None marital status: Current Living Situation: Spouse and Family current occupational status: employed Feels Safe at Home: Yes Assistive Devices: Glasses and Hearing Aid - Bilateral Review of Systems Review of Systems: Constitutional: fatigue ENT/Mouth: + for sinus congestion Cardiovascular: + for chest pain; no palpitation lung: + for greenish sputum, + for coughing and wheezing Gastrointestinal: No Nausea, No Vomiting, No Diarrhea, No Constipation, No Pain, No Heartburn, No Anorexia, No Dysphagia, No Hematochezia, No Melena, No Flatulence, No Jaundice infectious: no sick contact;no travel history Neuro: + for MS; + for polyneuropathy; no headache Endocrine: no diabetes; no polyuria Physical Exam Constitutional: VITALS: Reviewed. WEIGHT/BMI reviewed. GEN: non-toxic appearing PSYCH: Good Judgment. AOx3. Normal memory, mood, and affect. HEENT -Head: NC/AT; NECK: no JVD CV: RRR, no m/r/g. fasting heart rate LUNGS: congested breath sound; + for wheezing ABD: Soft, NT/ND, NBS, no masses or organomegaly. SKIN: Warm, well perfused. No skin rashes or abnormal lesions. MSK: No deformities, Normal gait. EXT: No clubbing, cyanosis, or edema. NEURO: AAOx3. Results & Data Results & Data Vital Signs (Past 12 Hours) Vital Signs Temp Pulse Pulse Resp BP BP Pulse Ox 05/09/25 16:58 75 05/09/25 16:00 79 16 185/110 H 94 05/09/25 14:00 83 18 157/98 H 94 05/09/25 12:40 71 18 144/90 H 100 05/09/25 12:10 83 05/09/25 12:06 97 05/09/25 11:35 81 18 147/99 H 96 05/09/25 11:35 95 05/09/25 11:12 36.4 C L 93 H 20 160/101 H 96 O2 Del Method 05/09/25 16:58 05/09/25 16:00 Room Air 05/09/25 14:00 Room Air 05/09/25 12:40 Room Air 05/09/25 12:10 05/09/25 12:06 Room Air 05/09/25 11:35 Room Air 05/09/25 11:35 Room Air 05/09/25 11:12 Room Air Laboratory Results Laboratory Results - last 72 hr 05/09/25 11:28 WBC 17.33 H RBC 4.49 Hgb 13.0 Hct 40.2 MCV 89.5 MCH 29.0 MCHC 32.3 RDW Std Deviation 44.6 RDW Coeff of Ruth 13.5 Plt Count 419 H MPV 9.7 Immature Gran % (Auto) 0.6 Neut % (Auto) 80.7 Lymph % (Auto) 8.1 Pitt % (Auto) 10.1 Eos % (Auto) 0.3 Baso % (Auto) 0.2 Neut # (Auto) 13.97 H Lymph # (Auto) 1.41 Pitt # (Auto) 1.75 H Eos # (Auto) 0.06 Baso # (Auto) 0.04 Immature Gran # (Auto) 0.10 PT 11.1 INR 1.1 D-Dimer 1130 H* Sodium 140 Potassium 3.9 Chloride 104 Carbon Dioxide 27 Anion Gap 9 BUN 20 Creatinine 1.09 Est Cr Clr Drug Dosing 69.5 eGFR 59.25 BUN/Creatinine Ratio 18.3 Glucose 108 H Calcium 9.5 Magnesium 2.3 Total Bilirubin 1.0 AST 26 ALT 33 Alkaline Phosphatase 208 H Troponin I High Sens 12.5 B-Natriuretic Peptide 31 Total Protein 7.5 Albumin 3.9 Globulin 3.6 Albumin/Globulin Ratio 1.1 Lipase 8 L TSH 3.363 Urine Color Dark Yellow Urine Appearance Turbid A Urine pH 6.0 Ur Specific Ramah 1.022 Urine Protein 2+ H Urine Glucose (UA) Negative Urine Ketones Trace H Urine Blood 1+ H Urine Nitrite Negative Urine Bilirubin 1+ H Urine Urobilinogen Negative Ur Leukocyte Esterase 3+ H Urine WBC (Auto) >50 H Urine RBC (Auto) 3-5 H U Hyaline Cast (Auto) 0-2 U Epithel Cells (Auto) 3-5 H Urine Bacteria (Auto) 4+ H Urine Mucus Present A Urine Comment Adenovirus (PCR) Not Detected B. pertussis DNA (PCR) Not Detected B.parapertussis DNA PCR Not Detected C. pneumoniae DNA (PCR) Not Detected Coronavirus OC43 (PCR) Not Detected Coronavirus HKU1 (PCR) Not Detected Coronavirus 229E (PCR) Not Detected SARS-CoV-2 (PCR) Not Detected Coronavirus NL63 (PCR) Not Detected Human Metapneumovir PCR Not Detected Influenza Type A (PCR) Not Detected Influenza Type B (PCR) Not Detected M. pneumoniae (PCR) Not Detected Parainfluenza 1 (PCR) Not Detected Parainfluenza 2 (PCR) Not Detected Parainfluenza 3 (PCR) Not Detected Parainfluenza 4 (PCR) Not Detected RSV (PCR) Not Detected Entero/Rhino (PCR) Not Detected Diagnostic Findings Laboratory Results WBC 17.33 K/ul (4.8-10.8) H 05/09/25 11: RBC 4.49 M/uL (4.20-5.40) 05/09/25 11:28 Hgb 13.0 g/dl (12.0-16.0) 05/09/25 11: Hct 40.2 % (37.0-47.0) 05/09/25 11: MCV 89.5 fL (80.0-100.0) 05/09/25 11: MCH 29.0 pg (25.0-34.0) 05/09/25 11:28 MCHC 32.3 g/dL (32.0-36.0) 05/09/25 11:28 RDW Std Deviation 44.6 fL (36.4-46.3) 05/09/25 11:28 RDW Coeff of Ruth 13.5 % (11.5-14.5) 05/09/25 11: Plt Count 419 K/uL (130-400) H 05/09/25 11: MPV 9.7 fL (9.4-12.4) 05/09/25 11: Immature Gran % (Auto) 0.6 % 05/09/25 11: Neut % (Auto) 80.7 % 05/09/25 11: Lymph % (Auto) 8.1 % 05/09/25 11:28 Pitt % (Auto) 10.1 % 05/09/25 11:28 Eos % (Auto) 0.3 % 05/09/25 11:28 Baso % (Auto) 0.2 % 05/09/25 11:28 Neut # (Auto) 13.97 K/uL (1.40-6.50) H 05/09/25 11:28 Lymph # (Auto) 1.41 K/uL (1.20-3.40) 05/09/25 11:28 Pitt # (Auto) 1.75 K/uL (0.11-0.59) H 05/09/25 11:28 Eos # (Auto) 0.06 K/uL (0.00-0.50) 05/09/25 11:28 Baso # (Auto) 0.04 K/uL (0.00-0.20) 05/09/25 11:28 Immature Gran # (Auto) 0.10 K/uL (0.01-0.20) 05/09/25 11: PT 11.1 Seconds (9.0-12.0) 05/09/25 11: INR 1.1 (0.9-1.1) 05/09/25 11:28 D-Dimer 1130 ug/L FEU (0-500) H* 05/09/25 11:28 Sodium 140 mmol/L (136-145) 05/09/25 11:28 Potassium 3.9 mmol/L (3.5-5.1) 05/09/25 11:28 Chloride 104 mmol/L (98-107) 05/09/25 11:28 Carbon Dioxide 27 mmol/L (21-32) 05/09/25 11:28 Anion Gap 9 (3-11) 05/09/25 11:28 BUN 20 mg/dl (6-23) 05/09/25 11:28 Creatinine 1.09 mg/dl (0.6-1.2) 05/09/25 11:28 Est Cr Clr Drug Dosing 69.5 ml/min 05/09/25 11:28 eGFR 59.25 05/09/25 11:28 BUN/Creatinine Ratio 18.3 (10-20) 05/09/25 11:28 Glucose 108 mg/dl (70-99(Fasting)) H 05/09/25 11:28 Calcium 9.5 mg/dl (8.6-10.3) 05/09/25 11:28 Magnesium 2.3 mg/dl (1.7-2.4) 05/09/25 11: Total Bilirubin 1.0 mg/dl (0.2-1.0) 05/09/25 11:28 AST 26 U/L (13-39) 05/09/25 11:28 ALT 33 U/L (7-52) 05/09/25 11:28 Alkaline Phosphatase 208 U/L (34-104) H 05/09/25 11:28 Troponin I High Sens 12.5 pg/ml (0-14) 05/09/25 11:28 B-Natriuretic Peptide 31 pg/ml (0-100) 05/09/25 11:28 Total Protein 7.5 gm/dl (6.0-8.3) 05/09/25 11:28 Albumin 3.9 gm/dl (3.4-5.0) 05/09/25 11:28 Globulin 3.6 gm/dl (2.5-4.0) 05/09/25 11: Albumin/Globulin Ratio 1.1 (0.9-2) 05/09/25 11:28 Lipase 8 U/L (11-82) L 05/09/25 11:28 TSH 3.363 uIu/ml (0.300-4.500) 05/09/25 11: Urine Color Dark Yellow 05/09/25 11:28 Urine Appearance Turbid (Clear) A 05/09/25 11:28 Urine pH 6.0 (4.5-7.5) 05/09/25 11:28 Ur Specific Ramah 1.022 (1.000-1.030) 05/09/25 11:28 Urine Protein 2+ (Negative) H 05/09/25 11:28 Urine Glucose (UA) Negative (Negative) 05/09/25 11:28 Urine Ketones Trace (Negative) H 05/09/25 11:28 Urine Blood 1+ (Negative) H 05/09/25 11: Urine Nitrite Negative (Negative) 05/09/25 11:28 Urine Bilirubin 1+ (Negative) H 05/09/25 11:28 Urine Urobilinogen Negative (Negative) 05/09/25 11:28 Ur Leukocyte Esterase 3+ (Negative) H 05/09/25 11:28 Urine WBC (Auto) >50 /hpf (0-5) H 05/09/25 11:28 Urine RBC (Auto) 3-5 /hpf (0-2) H 05/09/25 11:28 U Hyaline Cast (Auto) 0-2 /lpf (0-2) 05/09/25 11:28 U Epithel Cells (Auto) 3-5 /hpf (0-2) H 05/09/25 11:28 Urine Bacteria (Auto) 4+ (None Seen) H 05/09/25 11:28 Urine Mucus Present (None Prsent) A 05/09/25 11:28 Urine Comment 05/09/25 11:28 Adenovirus (PCR) Not Detected (NotDetected) 05/09/25 11:28 B. pertussis DNA (PCR) Not Detected (NotDetected) 05/09/25 11:28 B.parapertussis DNA PCR Not Detected (NotDetected) 05/09/25 11:28 C. pneumoniae DNA (PCR) Not Detected (NotDetected) 05/09/25 11:28 Coronavirus OC43 (PCR) Not Detected (NotDetected) 05/09/25 11:28 Coronavirus HKU1 (PCR) Not Detected (NotDetected) 05/09/25 11:28 Coronavirus 229E (PCR) Not Detected (NotDetected) 05/09/25 11:28 SARS-CoV-2 (PCR) Not Detected (NotDetected) 05/09/25 11:28 Coronavirus NL63 (PCR) Not Detected (NotDetected) 05/09/25 11:28 Human Metapneumovir PCR Not Detected (NotDetected) 05/09/25 11:28 Influenza Type A (PCR) Not Detected (NotDetected) 05/09/25 11:28 Influenza Type B (PCR) Not Detected (NotDetected) 05/09/25 11:28 M. pneumoniae (PCR) Not Detected (NotDetected) 05/09/25 11:28 Parainfluenza 1 (PCR) Not Detected (NotDetected) 05/09/25 11:28 Parainfluenza 2 (PCR) Not Detected (NotDetected) 05/09/25 11:28 Parainfluenza 3 (PCR) Not Detected (NotDetected) 05/09/25 11:28 Parainfluenza 4 (PCR) Not Detected (NotDetected) 05/09/25 11:28 RSV (PCR) Not Detected (NotDetected) 05/09/25 11:28 Entero/Rhino (PCR) Not Detected (NotDetected) 05/09/25 11:28 Impressions Chest X-Ray 05/09/25 11:38 XR chest 1V portable CLINICAL HISTORY: Chest pain, nonspecific COMPARISON STUDY: 04/19/2025 FINDINGS: There is mild cardiomegaly with pulmonary vascular congestion. Inspiration is shallow. No consolidation or pleural effusion seen. No pneumothorax. IMPRESSION: Mild CHF. ACT 112: Negative or not required by law. Electronically signed by: Anton Arceo M.D. 05/09/2025 12:45 PM Chest CTA 05/09/25 13:56 CT angio chest PE protocol CT DOSE: 685.33 mGy.cm HISTORY: 59 years-old Female with sob, elevated d-dimer, r/o PE. Acute shortness of breath with elevated d-dimer TECHNIQUE: Multiple CTA images of the chest were obtained after the intravenous administration of 120 ml Optiray. Coronal and sagittal MIPS were obtained from the axial data set and were submitted for review. All measurements were obtained according to NASCET criteria. A dose lowering technique was utilized adhering to the principles of ALARA. COMPARISON: Chest radiograph of same day, CTA chest 07/09/2021, CT abdomen and pelvis 02/01/2017 FINDINGS: CTA: Heart is mildly enlarged. No pericardial effusion. No thoracic aortic aneurysm or dissection. There is patency of the imaged great vessels. Unremarkable pulmonary artery. No pulmonary emboli are seen. CT CHEST: Unremarkable thyroid. Subcentimeter mediastinal and hilar lymph nodes, likely reactive. No pneumothorax, pleural effusion or overt pulmonary edema. An dependent subsegmental bibasilar densities favor atelectasis. Focal groundglass opacities are noted within the superior segment right lower lobe with additional patchy right middle lobe ground glass foci. On nonspecific stranding in the right retroperitoneum, posterior to the right adrenal gland, new from 2017. Cholecystectomy. There is mild right hemidiaphragmatic elevation. Unremarkable soft tissues. No acute fracture. IMPRESSION: 1. No definite pulmonary emboli identified. 2. Mild patchy right lung groundglass opacities, likely infectious or inflammatory. 3. Mild cardiomegaly. ACT 112: Negative or not required by law. The above report was generated using voice recognition software. It may contain grammatical, syntax or spelling errors. Electronically signed by: Jaya Snell M.D. 05/09/2025 3:32 PM Code Status & VTE Plan Code Status full code PG Care Time/CCT Total # of Minutes Spent Total Time Spent with Patient: Total time spent is greater than 50% in coordination of care (as documented) at patient's floor/unit and/or counseling patient: Coding Level of Care Code 09220 INT INP/OBS CARE 2/55MIN Diagnoses Recurrent pneumonia J18.9 Immunocompromised D84.9 Time Spent (min) 48
[2025-05-09] MEDS ORDERED: POLYETHYLENE (MIRALAX) 17 GM PACK PO PRN (17:58)
[2025-05-09] MEDS ORDERED: ALUMINUM/MAGNESIUM SUSP 30 ML UDC PO PRN (17:58)
[2025-05-09] MEDS ORDERED: MELATONIN 3 MG TAB PO PRN (17:58)
[2025-05-09] MEDS: PIPERACILLIN/TAZOBACTAM 4.5 GM/100 ML BAG IV ONE (18:11)
[2025-05-09 18:32] LABS: Hematocrit (blood only) 38.1 % (37.0-47.0); Hemoglobin 13.0 g/dl (12.0-16.0); Mean Corpuscular Hemoglobin 30.2 pg (25.0-34.0); Mean Corpuscular Volume 88.6 fL (80.0-100.0); Platelet Count 350 K/uL (130-400); RDW Standard Deviation 43.6 fL (36.4-46.3); Red Blood Count 4.30 M/uL (4.20-5.40); White Blood Count 15.33 K/ul (4.8-10.8)
[2025-05-09 18:51] LABS: Immature Granulocytes # (auto) 0.09 K/uL (0.01-0.20); Immature Granulocytes % (auto) 0.6 %
[2025-05-09] MEDS: DOXYCYCLINE HYCLATE 100 MG in DEXTROSE 5% MINI-B 100 ML IV STA (18:56)
[2025-05-09] MEDS: ROSUVASTATIN CALCIUM 20 MG TAB PO STA (18:57)
[2025-05-09] MEDS: SODIUM CHLOR 7% 4 ML NEB NEB SCH (19:58)
[2025-05-09] MEDS ORDERED: ALBUTEROL HFA 8 GM INHALER INH PRN (20:54)
[2025-05-09] MEDS ORDERED: MECLIZINE HCL 25 MG TAB PO PRN (20:54)
[2025-05-09] MEDS ORDERED: BUDESONIDE/FORMOTEROL FUMARATE 80/4.5 60 PUFFS/INHALER INH SCH (21:00)
[2025-05-09] MEDS ORDERED: ONDANSETRON 4 MG OD TAB PO PRN (21:00)
[2025-05-09] MEDS: HEPARIN SOD 5,000 UNIT/0.5 ML VIAL SQ SCH (22:16)
[2025-05-10] MEDS: BACLOFEN 20 MG TAB PO SCH (01:22)
[2025-05-10] MEDS: GABAPENTIN 600 MG TAB PO SCH (01:22)
[2025-05-10] MEDS: ACETAMINOPHEN 325 MG TAB PO PRN (06:26)
[2025-05-10 06:53] LABS: Hematocrit (blood only) 35.6 % (37.0-47.0); Hemoglobin 11.7 g/dl (12.0-16.0); Mean Corpuscular Hemoglobin 28.8 pg (25.0-34.0); Mean Corpuscular Volume 87.7 fL (80.0-100.0); Platelet Count 396 K/uL (130-400); RDW Standard Deviation 43.0 fL (36.4-46.3); Red Blood Count 4.06 M/uL (4.20-5.40); White Blood Count 15.84 K/ul (4.8-10.8)
[2025-05-10 07:16] LABS: Alanine Aminotransferase 25.0 U/L (7-52); Albumin Globulin Ratio 1.0 (0.9-2); Albumin Level 3.3 gm/dl (3.4-5.0); Alkaline Phosphatase 166.0 U/L (34-104); Anion Gap 9.0 (3-11); Bilirubin,Total 0.4 mg/dl (0.2-1.0); Blood Urea Nitrogen 23.0 mg/dl (6-23); Calcium 9.1 mg/dl (8.6-10.3); Carbon Dioxide 22.0 mmol/L (21-32); Chloride 108.0 mmol/L (98-107); Creatinine Clr Calc Pharmacy 86.2 ml/min; Globulin 3.3 gm/dl (2.5-4.0); Glucose 161.0 mg/dl (70-99(Fasting)); Potassium 4.1 mmol/L (3.5-5.1); Sodium 139.0 mmol/L (136-145); Total Protein 6.6 gm/dl (6.0-8.3)
[2025-05-10] MEDS ORDERED: NON-FORMULARY MEDICATION (Solifenacin [Vesicare] 10 mg tablet) PO SCH (09:00)
[2025-05-10] MEDS: OXYBUTYNIN CHLORIDE XL 5 MG TABCR PO SCH (10:36)
[2025-05-10] MEDS: ROSUVASTATIN CALCIUM 20 MG TAB PO SCH (10:37)
[2025-05-10] MEDS: METOPROLOL SUCC 50MG EXT REL TAB PO SCH (10:37)
[2025-05-10] MEDS: FLUTICASONE/VILANTEROL 100/25MCG 14 PUFFS/INHALER INH SCH (10:39)
--- NOTE | 2025-05-10 10:46 | XCELERA ---
[id number]
--- NOTE | 2025-05-10 13:49 | Hospitalist Progress Note ---
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 she's been on ocrevus for multiple sclerosis; since mar 2025, she's been having shortness of breath, greenish sputum, coughing and sinus pressure she did not improved with augmentin and zpack. in addition, she saw pulmonary Dr. Pacheco on 04/27/2025 and maintain on symbicort, she's s/p spirometry on 05/09/2025, she was having significant chest pain episode, high d-dimer and CTA negative for PE she was started on zosyn, doxycycyline, given she failed several oral regime for pneumonia; she was referral for inpatient admission for IV antibiotics, chest pain evaluation, she's has poor functional status, limited assess for specialist, and at risk for respiratory decompensation, worsening chest pain, 1. acute pneumonia 2. hypertensive urgency 3. chest pain episode 4. recurrent pneumonia since mar 2025 5. MS on ocrevus 6. neuropathy 7. hx of fatty liver 9. left ventricular hyertrophy 10. ?? hx of ITP overall plan another 24-48 hours of IV antibiotics f/u on sputum culture repeat CT chest in 6-8 weeks f/u with neurology for whether to adjust her ocrevus injection for MS f/u with pulmonary 1. acute pneumonia , IV cefepime, doxycycyline, f/u on nasal MRSA, legionelle and strept antigen hypertonic saline, mucinex, and duoneb nebulizer still has elevated WBC level expect another 24-48 hours of IV antibiotics she should has nebulizer and benefit from flutter valve f/u on sputum culture repeat CT chest in 6-8 weeks 2. chest pain episode, statin, aspirin, f/u on echo to r/o WMA 3. hypertensive urgency, pain control with tramadol PRN hydralazine 25mg IV 4. recurrent PNA, she will need repeat CT chest in 2-3 months she was following with Dr. Pacheco 5. MS, on ocrevus spoke with neurology Dr. Martinez, who is agreeable for holding ocrevus she's on baclofen 20mg TID she's on gabapentin 300 TID for polyneuropathy 6. hypertension, she's on metoprolol XL 50mg daily 7. chronic dizziness, she's on MRN meclizine 25mg PRN 8. low vitamin D, vitamin C 5000 unit daily diet: regular code status: full code DVT prophylaxis: heparin (2) Immunocompromised: (2) Immunocompromised: Admission and Anticipated Discharge Date Admission Date: May 09, 2025 Subjective her breathing is improving, but she still has significant congestion WBC still elevated expect another 24-48 hours of inpatient antibiotics f/u on sputum culture she will benefit from chest physiotherapy Physical Exam Physical Exam: VITALS: Reviewed. WEIGHT/BMI reviewed. GEN: Healthy appearing, well-developed, NAD. PSYCH: Good Judgment. AOx3. Normal memory, mood, and affect. HEENT -Head: NC/AT; -Mouth and throat: MMM. Normal gums, muc katiana, palate,. Good dentition. NECK: Supple, with no masses. CV: RRR, no m/r/g. LUNGS: CTAB, no w/r/c. congested breath; sound with deep inspiration ABD: Soft, NT/ND, NBS, no masses or organomegaly. MSK: No deformities, Normal gait. EXT: No clubbing, cyanosis, or edema. NEURO: AAOx3. Results & Data Results & Data Vital Signs (Past 12 Hours) Vital Signs Temp Pulse Resp BP Pulse Ox O2 Del Method 05/10/25 12:10 36.7 C 81 20 146/95 H 95 Room Air 05/10/25 10:30 79 157/98 H 96 Room Air 05/10/25 07:34 36.5 C 73 16 147/84 H 93 Room Air 05/10/25 07:30 73 18 93 Room Air Laboratory Results Laboratory Results - last 72 hr 05/09/25 05/09/25 05/09/25 11:28 17:14 17:58 WBC 17.33 H RBC 4.49 Hgb 13.0 Hct 40.2 MCV 89.5 MCH 29.0 MCHC 32.3 RDW Std Deviation 44.6 RDW Coeff of Ruth 13.5 Plt Count 419 H MPV 9.7 Immature Gran % (Auto) 0.6 Neut % (Auto) 80.7 Lymph % (Auto) 8.1 [place] % (Auto) 10.1 Eos % (Auto) 0.3 Baso % (Auto) 0.2 Neut # (Auto) 13.97 H Lymph # (Auto) 1.41 [place] # (Auto) 1.75 H Eos # (Auto) 0.06 Baso # (Auto) 0.04 Immature Gran # (Auto) 0.10 PT 11.1 INR 1.1 D-Dimer 1130 H* Sodium 140 Potassium 3.9 Chloride 104 Carbon Dioxide 27 Anion Gap 9 BUN 20 Creatinine 1.09 Est Cr Clr Drug Dosing 69.5 eGFR 59.25 BUN/Creatinine Ratio 18.3 Glucose 108 H Lactate 1.0 Calcium 9.5 Magnesium 2.3 Total Bilirubin 1.0 AST 26 ALT 33 Alkaline Phosphatase 208 H Troponin I High Sens 12.5 7.7 D B-Natriuretic Peptide 31 Total Protein 7.5 Albumin 3.9 Globulin 3.6 Albumin/Globulin Ratio 1.1 Lipase 8 L Procalcitonin 0.77 H TSH 3.363 Urine Color Dark Yellow Urine Appearance Turbid A Urine pH 6.0 Ur Specific [place] 1.022 Urine Protein 2+ H Urine Glucose (UA) Negative Urine Ketones Trace H Urine Blood 1+ H Urine Nitrite Negative Urine Bilirubin 1+ H Urine Urobilinogen Negative Ur Leukocyte Esterase 3+ H Urine WBC (Auto) >50 H Urine RBC (Auto) 3-5 H U Hyaline Cast (Auto) 0-2 U Epithel Cells (Auto) 3-5 H Urine Bacteria (Auto) 4+ H Urine Mucus Present A Urine Comment Nasal Screen MRSA (PCR) Negative Adenovirus (PCR) Not Detected B. pertussis DNA (PCR) Not Detected B.parapertussis DNA PCR Not Detected C. pneumoniae DNA (PCR) Not Detected Coronavirus OC43 (PCR) Not Detected Coronavirus HKU1 (PCR) Not Detected Coronavirus 229E (PCR) Not Detected SARS-CoV-2 (PCR) Not Detected Coronavirus NL63 (PCR) Not Detected Human Metapneumovir PCR Not Detected Influenza Type A (PCR) Not Detected Influenza Type B (PCR) Not Detected M. pneumoniae (PCR) Not Detected Parainfluenza 1 (PCR) Not Detected Parainfluenza 2 (PCR) Not Detected Parainfluenza 3 (PCR) Not Detected Parainfluenza 4 (PCR) Not Detected RSV (PCR) Not Detected Entero/Rhino (PCR) Not Detected 05/09/25 05/10/25 18:05 06:12 WBC 15.33 H 15.84 H RBC 4.30 4.06 L Hgb 13.0 11.7 L Hct 38.1 35.6 L MCV 88.6 87.7 MCH 30.2 28.8 MCHC 34.1 32.9 RDW Std Deviation 43.6 43.0 RDW Coeff of Ruth 13.5 13.3 Plt Count 350 396 MPV 9.6 9.6 Immature Gran % (Auto) 0.6 Neut % (Auto) 93.6 Lymph % (Auto) 4.4 [place] % (Auto) 1.3 Eos % (Auto) 0.0 Baso % (Auto) 0.1 Neut # (Auto) 14.34 H Lymph # (Auto) 0.68 L [place] # (Auto) 0.20 Eos # (Auto) 0.00 Baso # (Auto) 0.02 Immature Gran # (Auto) 0.09 PT INR D-Dimer Sodium 139 Potassium 4.1 Chloride 108 H Carbon Dioxide 22 Anion Gap 9 BUN 23 Creatinine 0.88 Est Cr Clr Drug Dosing 86.2 eGFR 76.60 BUN/Creatinine Ratio 26.1 H Glucose 161 H Lactate Calcium 9.1 Magnesium Total Bilirubin 0.4 D AST 18 ALT 25 Alkaline Phosphatase 166 H Troponin I High Sens B-Natriuretic Peptide Total Protein 6.6 Albumin 3.3 L Globulin 3.3 Albumin/Globulin Ratio 1.0 Lipase Procalcitonin TSH Urine Color Urine Appearance Urine pH Ur Specific [place] Urine Protein Urine Glucose (UA) Urine Ketones Urine Blood Urine Nitrite Urine Bilirubin Urine Urobilinogen Ur Leukocyte Esterase Urine WBC (Auto) Urine RBC (Auto) U Hyaline Cast (Auto) U Epithel Cells (Auto) Urine Bacteria (Auto) Urine Mucus Urine Comment Nasal Screen MRSA (PCR) Adenovirus (PCR) B. pertussis DNA (PCR) B.parapertussis DNA PCR C. pneumoniae DNA (PCR) Coronavirus OC43 (PCR) Coronavirus HKU1 (PCR) Coronavirus 229E (PCR) SARS-CoV-2 (PCR) Coronavirus NL63 (PCR) Human Metapneumovir PCR Influenza Type A (PCR) Influenza Type B (PCR) M. pneumoniae (PCR) Parainfluenza 1 (PCR) Parainfluenza 2 (PCR) Parainfluenza 3 (PCR) Parainfluenza 4 (PCR) RSV (PCR) Entero/Rhino (PCR) Medications Administered Current Inpatient Medications Acetaminophen (Acetaminophen 325 Mg Tab) 650 mg PO Q4H PRN PRN Reason: pain/fever Stop: 06/08/25 17:57 Last Admin: 05/10/25 10:37 Dose: 650 mg Al Hydrox/Mg Hydrox/Simethicone (Aluminum/Magnesium Susp 30 Ml Udc) 30 ml PO Q6H PRN PRN Reason: Dyspepsia Stop: 06/08/25 17:57 Albuterol (Albuterol Hfa 8 Gm Inhaler) 1 puffs INH Q6H PRN PRN Reason: shortness of breath or wheezing Stop: 06/08/25 20:53 Baclofen (Baclofen 20 Mg Tab) 20 mg PO TID [facility] Stop: 06/08/25 20:59 Last Admin: 05/10/25 10:36 Dose: 20 mg Fluticasone/Vilanterol (Fluticasone/Vilanterol 100/25mcg 14 Puffs/Inhaler) 1 puffs INH DAILY [facility]; Protocol Stop: 06/09/25 08:59 Last Admin: 05/10/25 10:39 Dose: 1 puffs Gabapentin (Gabapentin 600 Mg Tab) 600 mg PO BID [facility] Stop: 06/09/25 01:04 Last Admin: 05/10/25 10:36 Dose: 600 mg Heparin Sodium (Porcine) (Heparin Sod 5,000 Unit/0.5 Ml Vial) 5,000 units SQ Q8 JEAN Stop: 06/08/25 21:59 Last Admin: 05/10/25 06:23 Dose: 5,000 units Meclizine HCl (Meclizine Hcl 25 Mg Tab) 25 mg PO BID PRN PRN Reason: dizziness Stop: 06/08/25 20:53 Melatonin (Melatonin 3 Mg Tab) 6 mg PO HS PRN PRN Reason: Insomnia Stop: 06/08/25 17:57 Metoprolol Succinate (Metoprolol Succ 50mg Ext Rel Tab) 50 mg PO QAM [facility] Stop: 06/09/25 08:59 Last Admin: 05/10/25 10:37 Dose: 50 mg Ondansetron HCl (Ondansetron Inj 2 Mg/Ml 2 Ml Vial) 4 mg IV Q6H PRN PRN Reason: Nausea Stop: 06/08/25 17:57 Ondansetron HCl (Ondansetron 4 Mg Od Tab) 4 mg PO BID PRN PRN Reason: nausea and vomiting Stop: 06/08/25 20:59 Oxybutynin Chloride (Oxybutynin Chloride Xl 5 Mg Tabcr) 10 mg PO DAILY [facility]; Protocol Stop: 06/09/25 08:59 Last Admin: 05/10/25 10:36 Dose: 10 mg Polyethylene Glycol (Polyethylene (Miralax) 17 Gm Pack) 17 gm PO DAILY PRN PRN Reason: Constipation Stop: 06/08/25 17:57 Rosuvastatin Calcium (Rosuvastatin Calcium 20 Mg Tab) 20 mg PO QAM [facility] Stop: 06/09/25 08:59 Last Admin: 05/10/25 10:37 Dose: 20 mg Sodium Chloride (Sodium Chlor 7% 4 Ml Neb) 4 ml NEB BIDR [facility] Stop: 06/08/25 18:59 Last Admin: 05/10/25 07:29 Dose: 4 ml Tramadol HCl (Tramadol Hcl 50 Mg Tablet) 50 mg PO Q4H PRN PRN Reason: Pain Stop: 06/08/25 17:57 Vitamin D (Cholecalciferol 125 Mcg (5,000 Units) Tab) 125 mcg PO QAM [facility] Stop: 06/09/25 08:59 PG Care Time/CCT Total # of Minutes Spent Total Time Spent with Patient: Total time spent is greater than 50% in coordination of care (as documented) at patient's floor/unit and/or counseling patient: Coding Level of Care Code 57026 SUB INP/OBS CARE 08/07MIN Diagnoses Recurrent pneumonia J18.9 Immunocompromised D84.9 Time Spent (min) 20
[2025-05-10] MEDS ORDERED: BUTALBITAL/ACETAMIN/CAFFEINE TAB PO PRN (13:50)
[2025-05-10] MEDS: CEFEPIME 2000MG 2,000 MG/20 ML SYR IV SCH (16:22)
[2025-05-10] MEDS: ONDANSETRON INJ 2 MG/ML 2 ML VIAL IV PRN (16:22)
[2025-05-10] MEDS: DOXYCYCLINE HYCLATE 100 MG in DEXTROSE 5% MINI-B 100 ML IV SCH (16:22)
[2025-05-10] MEDS: CHOLECALCIFEROL 125 MCG (5,000 UNITS) TAB PO SCH (18:58)
[2025-05-10] MEDS ORDERED: NITROGLYCERIN SL 0.4 MG/TAB TAB SL PRN (19:45)
[2025-05-10] MEDS: BENZONATATE 100 MG CAPSULE PO PRN (22:37)
[2025-05-10] MEDS: GABAPENTIN 300 MG CAP PO ONE (23:10)
[2025-05-11 06:23] LABS: Hematocrit (blood only) 34.9 % (37.0-47.0); Hemoglobin 11.6 g/dl (12.0-16.0); Mean Corpuscular Hemoglobin 29.2 pg (25.0-34.0); Mean Corpuscular Volume 87.9 fL (80.0-100.0); Platelet Count 413 K/uL (130-400); RDW Standard Deviation 43.3 fL (36.4-46.3); Red Blood Count 3.97 M/uL (4.20-5.40); White Blood Count 16.08 K/ul (4.8-10.8)
[2025-05-11 06:40] LABS: Alanine Aminotransferase 31.0 U/L (7-52); Albumin Globulin Ratio 1.0 (0.9-2); Albumin Level 3.4 gm/dl (3.4-5.0); Alkaline Phosphatase 152.0 U/L (34-104); Anion Gap 10.0 (3-11); Bilirubin,Total 0.5 mg/dl (0.2-1.0); Blood Urea Nitrogen 29.0 mg/dl (6-23); Calcium 9.2 mg/dl (8.6-10.3); Carbon Dioxide 23.0 mmol/L (21-32); Chloride 107.0 mmol/L (98-107); Creatinine Clr Calc Pharmacy 59.7 ml/min; Globulin 3.3 gm/dl (2.5-4.0); Glucose 96.0 mg/dl (70-99(Fasting)); Potassium 3.9 mmol/L (3.5-5.1); Sodium 140.0 mmol/L (136-145); Total Protein 6.7 gm/dl (6.0-8.3)
[2025-05-11] MEDS: SODIUM CHLORIDE 0.9% 1,000 ML IV SCH (10:50)
--- NOTE | 2025-05-11 13:25 | Hospitalist Progress Note ---
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 she's been on ocrevus for multiple sclerosis; since mar 2025, she's been having shortness of breath, greenish sputum, coughing and sinus pressure she did not improved with augmentin and zpack. in addition, she saw pulmonary Dr. Pacheco on 04/27/2025 and maintain on symbicort, she's s/p spirometry on 05/09/2025, she was having significant chest pain episode, high d-dimer and CTA negative for PE she was started on zosyn, doxycycyline, given she failed several oral regime for pneumonia; she was referral for inpatient admission for IV antibiotics, chest pain evaluation, she's has poor functional status, limited assess for specialist, and at risk for respiratory decompensation, worsening chest pain, 1. acute pneumonia 2. chest pain episode 2. hypertensive urgency 3. chest pain episode 4. recurrent pneumonia since mar 2025 5. MS on ocrevus 6. neuropathy 7. hx of fatty liver 9. left ventricular hyertrophy 10. ?? hx of ITP overall plan another 24-48 hours of IV antibiotics f/u on sputum culture repeat CT chest in 6-8 weeks f/u with neurology for whether to adjust her ocrevus injection for MS f/u with pulmonary 1. acute pneumonia , IV cefepime, doxycycyline, f/u on nasal MRSA, legionelle and strept antigen hypertonic saline, mucinex, and duoneb noted she's on ocrevus for mutiple sclerosis ID seen the patient, recommended IVIG. f/u on sputum culture, f/u on PCP. still has elevated WBC level she should has nebulizer and benefit from flutter valve f/u on sputum culture repeat CT chest in 2 months 2. chest pain episode, f/u on CTA to r/o PE 3. hypertensive urgency, pain control with tramadol PRN hydralazine 25mg IV 4. recurrent PNA, repeat CT chest in 2 months she was following with Dr. Pacheco 5. MS, on ocrevus spoke with neurology Dr. Martinez, who is agreeable for holding ocrevus she's on baclofen 20mg TID she's on gabapentin 300 TID for polyneuropathy 6. hypertension, continue with metoprolol XL 50mg daily 7. chronic dizziness, she's on MRN meclizine 25mg PRN 8. low vitamin D, vitamin C 5000 unit daily diet: regular code status: full code DVT prophylaxis: heparin (2) Immunocompromised: Admission and Anticipated Discharge Date Admission Date: May 09, 2025 Subjective she's still has significant congestion; and high WBC on cefepime ID was consulted; recommended IVIG, the plan for discussed with her private pulmonary Dr Pacheco and neuro (Dr. Martinez) chest pain episode, cycle troponin, CTA to r/o PE dc no sooner than 48 hours away Physical Exam Physical Exam: VITALS: Reviewed. WEIGHT/BMI reviewed. GEN: Healthy appearing, well-developed, NAD. PSYCH: Good Judgment. AOx3. Normal memory, mood, and affect. HEENT -Head: NC/AT; NECK: Supple, with no masses. CV: RRR, no m/r/g. LUNGS: CTAB, no w/r/c. congested breath sound; ABD: Soft, NT/ND, NBS, no masses or organomegaly. SKIN: Warm, well perfused. No skin rashes or abnormal lesions. MSK: No deformities, Normal gait. EXT: No clubbing, cyanosis, or edema. NEURO: AAox3 Results & Data Results & Data Vital Signs (Past 12 Hours) Vital Signs Temp Pulse Pulse Resp BP Pulse Ox O2 Del Method 05/11/25 11:47 37.1 C 96 H 16 148/84 H 91 Room Air 05/11/25 07:53 36.8 C 81 20 120/70 92 Room Air 05/11/25 07:44 68 18 90 Room Air 05/11/25 07:42 77 05/11/25 02:40 37.1 C 86 16 115/71 92 Room Air Laboratory Results Laboratory Results - last 72 hr 05/09/25 05/09/25 05/09/25 11:28 17:14 17:58 WBC 17.33 H RBC 4.49 Hgb 13.0 Hct 40.2 MCV 89.5 MCH 29.0 MCHC 32.3 RDW Std Deviation 44.6 RDW Coeff of Ruth 13.5 Plt Count 419 H MPV 9.7 Immature Gran % (Auto) 0.6 Neut % (Auto) 80.7 Lymph % (Auto) 8.1 [place] % (Auto) 10.1 Eos % (Auto) 0.3 Baso % (Auto) 0.2 Neut # (Auto) 13.97 H Lymph # (Auto) 1.41 [place] # (Auto) 1.75 H Eos # (Auto) 0.06 Baso # (Auto) 0.04 Immature Gran # (Auto) 0.10 PT 11.1 INR 1.1 D-Dimer 1130 H* Sodium 140 Potassium 3.9 Chloride 104 Carbon Dioxide 27 Anion Gap 9 BUN 20 Creatinine 1.09 Est Cr Clr Drug Dosing 69.5 eGFR 59.25 BUN/Creatinine Ratio 18.3 Glucose 108 H Lactate 1.0 Calcium 9.5 Magnesium 2.3 Total Bilirubin 1.0 AST 26 ALT 33 Alkaline Phosphatase 208 H Troponin I High Sens 12.5 7.7 D B-Natriuretic Peptide 31 Total Protein 7.5 Albumin 3.9 Globulin 3.6 Albumin/Globulin Ratio 1.1 Lipase 8 L Procalcitonin 0.77 H TSH 3.363 Urine Color Dark Yellow Urine Appearance Turbid A Urine pH 6.0 Ur Specific [place] 1.022 Urine Protein 2+ H Urine Glucose (UA) Negative Urine Ketones Trace H Urine Blood 1+ H Urine Nitrite Negative Urine Bilirubin 1+ H Urine Urobilinogen Negative Ur Leukocyte Esterase 3+ H Urine WBC (Auto) >50 H Urine RBC (Auto) 3-5 H U Hyaline Cast (Auto) 0-2 U Epithel Cells (Auto) 3-5 H Urine Bacteria (Auto) 4+ H Urine Mucus Present A Urine Comment Nasal Screen MRSA (PCR) Negative Adenovirus (PCR) Not Detected B. pertussis DNA (PCR) Not Detected B.parapertussis DNA PCR Not Detected C. pneumoniae DNA (PCR) Not Detected Coronavirus OC43 (PCR) Not Detected Coronavirus HKU1 (PCR) Not Detected Coronavirus 229E (PCR) Not Detected SARS-CoV-2 (PCR) Not Detected Coronavirus NL63 (PCR) Not Detected HIV 1&2 Ab/P24 Ag 4thGn Human Metapneumovir PCR Not Detected Influenza Type A (PCR) Not Detected Influenza Type B (PCR) Not Detected M. pneumoniae (PCR) Not Detected Parainfluenza 1 (PCR) Not Detected Parainfluenza 2 (PCR) Not Detected Parainfluenza 3 (PCR) Not Detected Parainfluenza 4 (PCR) Not Detected RSV (PCR) Not Detected Entero/Rhino (PCR) Not Detected 05/09/25 05/10/25 05/11/25 18:05 06:12 05:40 WBC 15.33 H 15.84 H 16.08 H RBC 4.30 4.06 L 3.97 L Hgb 13.0 11.7 L 11.6 L Hct 38.1 35.6 L 34.9 L MCV 88.6 87.7 87.9 MCH 30.2 28.8 29.2 MCHC 34.1 32.9 33.2 RDW Std Deviation 43.6 43.0 43.3 RDW Coeff of Ruth 13.5 13.3 13.5 Plt Count 350 396 413 H MPV 9.6 9.6 9.6 Immature Gran % (Auto) 0.6 Neut % (Auto) 93.6 Lymph % (Auto) 4.4 [place] % (Auto) 1.3 Eos % (Auto) 0.0 Baso % (Auto) 0.1 Neut # (Auto) 14.34 H Lymph # (Auto) 0.68 L [place] # (Auto) 0.20 Eos # (Auto) 0.00 Baso # (Auto) 0.02 Immature Gran # (Auto) 0.09 PT INR D-Dimer Sodium 139 140 Potassium 4.1 3.9 Chloride 108 H 107 Carbon Dioxide 22 23 Anion Gap 9 10 BUN 23 29 H Creatinine 0.88 1.27 H D Est Cr Clr Drug Dosing 86.2 59.7 eGFR 76.60 49.32 BUN/Creatinine Ratio 26.1 H 22.8 H Glucose 161 H 96 Lactate Calcium 9.1 9.2 Magnesium Total Bilirubin 0.4 D 0.5 AST 18 22 ALT 25 31 Alkaline Phosphatase 166 H 152 H Troponin I High Sens B-Natriuretic Peptide Total Protein 6.6 6.7 Albumin 3.3 L 3.4 Globulin 3.3 3.3 Albumin/Globulin Ratio 1.0 1.0 Lipase Procalcitonin TSH Urine Color Urine Appearance Urine pH Ur Specific [place] Urine Protein Urine Glucose (UA) Urine Ketones Urine Blood Urine Nitrite Urine Bilirubin Urine Urobilinogen Ur Leukocyte Esterase Urine WBC (Auto) Urine RBC (Auto) U Hyaline Cast (Auto) U Epithel Cells (Auto) Urine Bacteria (Auto) Urine Mucus Urine Comment Nasal Screen MRSA (PCR) Adenovirus (PCR) B. pertussis DNA (PCR) B.parapertussis DNA PCR C. pneumoniae DNA (PCR) Coronavirus OC43 (PCR) Coronavirus HKU1 (PCR) Coronavirus 229E (PCR) SARS-CoV-2 (PCR) Coronavirus NL63 (PCR) HIV 1&2 Ab/P24 Ag 4thGn Human Metapneumovir PCR Influenza Type A (PCR) Influenza Type B (PCR) M. pneumoniae (PCR) Parainfluenza 1 (PCR) Parainfluenza 2 (PCR) Parainfluenza 3 (PCR) Parainfluenza 4 (PCR) RSV (PCR) Entero/Rhino (PCR) 05/11/25 11:04 WBC RBC Hgb Hct MCV MCH MCHC RDW Std Deviation RDW Coeff of Ruth Plt Count MPV Immature Gran % (Auto) Neut % (Auto) Lymph % (Auto) [place] % (Auto) Eos % (Auto) Baso % (Auto) Neut # (Auto) Lymph # (Auto) [place] # (Auto) Eos # (Auto) Baso # (Auto) Immature Gran # (Auto) PT INR D-Dimer Sodium Potassium Chloride Carbon Dioxide Anion Gap BUN Creatinine Est Cr Clr Drug Dosing eGFR BUN/Creatinine Ratio Glucose Lactate Calcium Magnesium Total Bilirubin AST ALT Alkaline Phosphatase Troponin I High Sens B-Natriuretic Peptide Total Protein Albumin Globulin Albumin/Globulin Ratio Lipase Procalcitonin TSH Urine Color Urine Appearance Urine pH Ur Specific [place] Urine Protein Urine Glucose (UA) Urine Ketones Urine Blood Urine Nitrite Urine Bilirubin Urine Urobilinogen Ur Leukocyte Esterase Urine WBC (Auto) Urine RBC (Auto) U Hyaline Cast (Auto) U Epithel Cells (Auto) Urine Bacteria (Auto) Urine Mucus Urine Comment Nasal Screen MRSA (PCR) Adenovirus (PCR) B. pertussis DNA (PCR) B.parapertussis DNA PCR C. pneumoniae DNA (PCR) Coronavirus OC43 (PCR) Coronavirus HKU1 (PCR) Coronavirus 229E (PCR) SARS-CoV-2 (PCR) Coronavirus NL63 (PCR) HIV 1&2 Ab/P24 Ag 4thGn Negative Human Metapneumovir PCR Influenza Type A (PCR) Influenza Type B (PCR) M. pneumoniae (PCR) Parainfluenza 1 (PCR) Parainfluenza 2 (PCR) Parainfluenza 3 (PCR) Parainfluenza 4 (PCR) RSV (PCR) Entero/Rhino (PCR) PG Care Time/CCT Total # of Minutes Spent Total Time Spent with Patient: Total time spent is greater than 50% in coordination of care (as documented) at patient's floor/unit and/or counseling patient: Coding Level of Care Code 73693 SUB INP/OBS CARE 1/25MIN Diagnoses Recurrent pneumonia J18.9 Immunocompromised D84.9 Time Spent (min) 25
--- NOTE | 2025-05-11 17:04 | Infectious Disease Consult ---
Date of Consultation May 11, 2025 Assessment & Plan (1) Recurrent pneumonia: (2) Hypogammaglobulinemia: Plan ID Problem List: # Cough, congestion # Possible pneumonia # Possible viral infection # Hypogammaglobulinemia # Multiple sclerosis on ocrelizumab # Antibiotic allergy: sulfa (rash) Impression: Danyelle Warren is a 59-year-old woman with history of MS dx 2013 on ocrelizumab, Raynauds syndrome, who presents to [facility] on 05/10/25 with shortness of breath in the setting of 2 months of cough and congestion. ID is consulted for evaluate for cough and possible respiratory infection. The patient has cough and nasal congestion for the last ~2 months. She reports that her became sick after returning from a trip to [place] in late February 2025, and she became sick shortly after. Since that time, she has been having ongoing cough and nasal congestion. She has a cough that is intermittently mildly productive of sputum. She does not have other sick contacts; her son and grandson have not been sick. 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 No fevers, chills, n/v/d, urinary symptoms. Her MS symptoms feel under control, though she has ongoing nerve pain. She had seen Dr. Pacheco of pulmonary as an outpatient, who send IgG levels d/t concern for hypogammaglobulinemia in the setting of ocrelizumab. Her IgG level was 385 on 04/27/25 (IgG1 263, IgG2 97, IgG3 37, and IgG4 <0.5) with normal IgA and IgM <20; she has not yet been given Ig replacement. She has also been on Symbicort. Upon arrival, afebrile, SpO2 93 - 100% on RA. WBC 17.33 with neutrophilia and L shift, Hgb 13 plts 419 Cr 1.09 LFTs wnl. Procal 0.77. She has not been febrile and has not been hypoxemic throughout her admission. CXR negative for acute cardiopulmonary process. D-dimer was elevated at 1130 and so CTA chest was obtained, which was negative for PE, showed patchy right lung ground glass opacities are suspicious for infection/pneumonia. The patient was started on doxycycline and pip-tazo. MRSA nares negative. The patient was born in [place] and has lived in [place] her whole life. No recent travel outside the country in the last few years. No known contacts with TB. No pets, no exposure to any animals including wild animals or livestock. Walks around outside, no recent hiking or camping. 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 At the time of evaluation, she thinks that she is feeling slightly better, with improved cough. She still has a slight amount of pressure in her chest. Discussion Pt presenting with ~2 months of cough and congestion. She does not have hypoxemia. Her CT chest showed slight R-sided patchy GGOs c/f infection. Although her RPP was negative, her presentation is suggestive of a possible prolonged viral infection, given that her was sick in Feb 2025, after which she became sick and has been symptomatic since that time. Also consider the possibility of atypical bacterial infection (e.g., Legionella). Lower suspicion for PJP at this time; pt has been on an anti-CD20 agent and has not required significant systemic steroid use recently, and is currently not hypoxemic. Lower risk for fungal infection. Will follow bacterial sputum Cx. Will nevertheless follow quantiferon, CrAg, Histo, Aspergillus, and Legionella testing. Given elevated WBC and slightly elevated procal, reasonable to continue cefepime and doxycycline to cover for possible superimposed bacterial infection. Pts recent IgG levels were in the 300s, and thus she has hypogammaglobulinemia. Given her 2-month history of cough and congestion, and possible longstanding mild ?viral infection, would recommend to give IVIG (discussed with Dr. Pacheco and Dr. Martinez), and would refer to outpatient immunology to evaluate for possible ongoing Ig replacement. She does have a history of Raynauds. Can follow autoimmune testing as well. Recommendations: - Reasonable to continue cefepime 2g IV q8h and doxycycline 100 mg BID (can change to PO) for now - Give a one-time dose of IVIG 400 mg/kg x1 - Refer to immunology for outpatient evaluation of potential need for ongoing Ig replacement - Send quantiferon, serum CrAg, Histoplasma UrAg, aspergillus serum Ag, Legi onella UrAg, - F/u 05/10 sputum Cx - F/u 05/09 BCx until finalized to ensure remains negative - Continue close follow-up with neurology (Dr. Martinez) and pulmonary (Dr. Pacheco) ID will continue to follow. Emelia Miles MD, MHS Infectious Diseases [facility] ID Connect direct line: [phone] Consultation Information Consultation was provided via telemedicine using two-way real-time interactive telecommunication between the patient and the telemedicine provider. For the duration of the visit, the provider was performing the assessment from a different facility than the patient. This includesuse of bluetooth stethoscope forauscultationperformed by the telepresenter that the telemedicine provider can hear if described in the physical exam. Event Mgr contact information: Please call [facility] Connect Call Center [phone]. (Phone Number For Physician Use Only) After establishing a telemedicine visit, patient was: Patient was verified with two unique identifiers, Patient/authorized rep acknowledged consent and understanding and Gave permission to continue telehealth session Time Spent with Patient: Initial => 75 min History of Present Illness Attending Physician: Andrea Low DO History of Present Illness Danyelle Warren is a 59-year-old woman with history of MS dx 2013 on ocrelizumab, Raynauds syndrome, who presents to [facility] on 05/10/25 with shortness of breath in the setting of 2 months of cough and congestion. ID is consulted for evaluate for cough and possible respiratory infection. The patient has cough and nasal congestion for the last ~2 months. She reports that her became sick after returning from a trip to [place] in late February 2025, and she became sick shortly after. Since that time, she has been having ongoing cough and nasal congestion. She has a cough that is intermittently mildly productive of sputum. She does not have other sick contacts; her son and grandson have not been sick. 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 No fevers, chills, n/v/d, urinary symptoms. Her MS symptoms feel under control, though she has ongoing nerve pain. She had seen Dr. Pacheco of pulmonary as an outpatient, who send IgG levels d/t concern for hypogammaglobulinemia in the setting of ocrelizumab. Her IgG level was 385 on 04/27/25 (IgG1 263, IgG2 97, IgG3 37, and IgG4 <0.5) with normal IgA and IgM <20; she has not yet been given Ig replacement. She has also been on Symbicort. Upon arrival, afebrile, SpO2 93 - 100% on RA. WBC 17.33 with neutrophilia and L shift, Hgb 13 plts 419 Cr 1.09 LFTs wnl. Procal 0.77. She has not been febrile and has not been hypoxemic throughout her admission. CXR negative for acute cardiopulmonary process. D-dimer was elevated at 1130 and so CTA chest was obtained, which was negative for PE, showed patchy right lung ground glass opacities are suspicious for infection/pneumonia. The patient was started on doxycycline and pip-tazo. MRSA nares negative. The patient was born in [place] and has lived in [place] her whole life. No recent travel outside the country in the last few years. No known contacts with TB. No pets, no exposure to any animals including wild animals or livestock. Walks around outside, no recent hiking or camping. 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 At the time of evaluation, she thinks that she is feeling slightly better, with improved cough. She still has a slight amount of pressure in her chest. Allergies Allergy/AdvReac Type Severity Reaction Status Date / Time Sulfa (Sulfonamide Allergy Mild Rash Verified 04/22/25 11:18 Antibiotics) lisinopril AdvReac Intermediate Palpitation Verified 04/22/25 11:18 s Home Medications Medication Instructions Recorded Confirmed Type nitroglycerin 0.4 mg sublingual 0.4 mg sublingual UD PRN Chest 04/23/16 05/09/25 History tablet (Nitrostat) Pain ##0 cholecalciferol (vitamin D3) 125 5,000 unit PO QAM ##0 05/01/16 05/09/25 History mcg (5,000 unit) capsule metoprolol succinate 50 mg 50 mg PO QAM ##90 02/01/17 05/09/25 History tablet,extended release 24 hr ocrelizumab 30 mg/mL intravenous 600 mg (20 mL) IV .COMPLEX #20 mL 01/09/24 05/09/25 Rx solution (Ocrevus) solifenacin 10 mg tablet (Vesicare) 10 mg PO QAM #90 tabs 10/04/24 05/09/25 Rx gabapentin 300 mg capsule 300 mg PO QID 90 days #360 caps 11/16/24 05/09/25 Rx ondansetron HCl 4 mg tablet 4 mg PO BID PRN nausea and 02/14/25 05/09/25 Rx vomiting #60 tabs meclizine 25 mg tablet 25 mg PO BID PRN dizziness #30 tabs 02/21/25 05/09/25 Rx baclofen 20 mg tablet 20 mg PO TID 90 days #270 tabs 03/07/25 05/09/25 Rx albuterol sulfate 90 mcg/actuation 1 inh inhalation Q6H PRN shortness 04/27/25 05/09/25 Rx aerosol inhaler of breath or wheezing #18 grams budesonide-formoterol HFA 80 2 puff inhalation BID #10.2 grams 04/27/25 05/09/25 Rx mcg-4.5 mcg/actuation aerosol inhaler (Symbicort) Patient History Medical History COVID-19 Immune thrombocytopenic purpura Fatty infiltration of liver LVH (left ventricular hypertrophy) "acts up with increased blood pressure"; has not seen cardio in "awhile," had had 2 stress tests with no issues Overactive bladder due to her MS History of COVID-19 06/2021, home test and test at PCP, not hosp; went to the ER w/cough and shortness of breath, fever, body aches>resolved w/exception of shortness of breath occasionally with her "MS hug" History of ITP Multiple sclerosis "gets the MS hug sometimes and has the nitroglycerin to help with the chest pain" Hypertension Surgical History Hx of thumb surgery for tendonitis Hx of tubal ligation Hx of colonoscopy Hx of wisdom tooth extraction Hx of bilateral hip replacements Right hip 12/2020, left hip 03/2021 Hx of section x1 Hx of cholecystectomy Family History Grandmother (Maternal) Breast cancer Denies family history of Ovarian cancer Colorectal cancer Social History Smoking Status: Never smoker Second Hand Exposure: No; Do You Dip or Chew Tobacco: No; Hx Alcohol Use: No Hx Substance Use: No Preferred Language: Yakut Communication Ability: Effective Flue Gas Analyst Required: No Beliefs That Will Affect Care: None marital status: Current Living Situation: Spouse and Family Current Living Situation Comment: lives at home with , son, and grandson current occupational status: employed Feels Safe at Home: Yes Assistive Devices: None Physical Exam Physical Exam: Exam obtained with assistance of an in-person telepresenter General: Well-appearing, no acute distress HEENT: Conjunctivae non-injected, sclerae anicteric, MMM, OP clear. Resp: Respirations nonlabored. Diminished, faint bibasilar crackles Abd: Soft, nontender, nondistended. Ext: No joint warmth or effusions noted. Skin: Red papule on R medial calf with shallow wound. Neuro: Alert & interactive. Grossly non-focal. Psych: Pleasant, appropriate. Results & Data Vital Signs (Past 12 Hours) Vital Signs Temp Pulse Pulse Resp BP Pulse Ox O2 Del Method 05/11/25 17:00 87 05/11/25 16:24 37.0 C 77 20 164/98 H 96 Room Air 05/11/25 11:47 37.1 C 96 H 16 148/84 H 91 Room Air 05/11/25 08:00 Room Air 05/11/25 07:53 36.8 C 81 20 120/70 92 Room Air 05/11/25 07:44 68 18 90 Room Air 05/11/25 07:42 77 Laboratory Results Diagnostics: 05/10 TTE: LVEF normal, borderline LA enlargement, no significant valvular heart disease 05/09/25 CTA chest 1. No definite pulmonary emboli identified. 2. Mild patchy right lung groundglass opacities, likely infectious or inflammatory. 3. Mild cardiomegaly. Micro Data: 05/11 HIV: neg 05/10 sputum Cx: PEND 05/09 BCx x2: NGTD 05/09 MRSA nares: neg 05/09 full RPP: neg 05/09 UCx: E. coli (R-amp, otherwise S including S-cefazolin, ceftriaxone, cipro, levo, TMP/SMX) Antibiotic Summary: cefepime (05/10 present) doxycycline ( present) prior pip-tazo (05/09)
[2025-05-11] MEDS: IMMUNE GLOBULIN IV (HUMAN) SOLN IV ONE ×2 (18:34→19:25)
[2025-05-11] MEDS: Octagam 10% IVIG 10 gram bottle IV SCH (18:38)
[2025-05-11] MEDS: Octagam 10% IVIG 20 gram bottle IV SCH (18:39)
[2025-05-11] MEDS: DOXYCYCLINE HYCLATE 100 MG CAP PO SCH (21:53)
[2025-05-12] MEDS ORDERED: Nursing to Pharmacy Communication SCH ×2 (00:30)
[2025-05-12 07:23] LABS: Hematocrit (blood only) 33.4 % (37.0-47.0); Hemoglobin 11.1 g/dl (12.0-16.0); Mean Corpuscular Hemoglobin 29.4 pg (25.0-34.0); Mean Corpuscular Volume 88.4 fL (80.0-100.0); Platelet Count 355 K/uL (130-400); RDW Standard Deviation 43.0 fL (36.4-46.3); Red Blood Count 3.78 M/uL (4.20-5.40); White Blood Count 8.33 K/ul (4.8-10.8)
[2025-05-12 07:33] LABS: Albumin Level 3.1 gm/dl (3.4-5.0); Anion Gap 7.0 (3-11); Bilirubin,Total 0.5 mg/dl (0.2-1.0); Calcium 9.0 mg/dl (8.6-10.3); Carbon Dioxide 26.0 mmol/L (21-32); Chloride 110.0 mmol/L (98-107); Potassium 4.2 mmol/L (3.5-5.1); Sodium 143.0 mmol/L (136-145)
[2025-05-12 07:39] LABS: Alanine Aminotransferase 27.0 U/L (7-52); Albumin Globulin Ratio 0.9 (0.9-2); Alkaline Phosphatase 116.0 U/L (34-104); Blood Urea Nitrogen 18.0 mg/dl (6-23); Creatinine Clr Calc Pharmacy 68.2 ml/min; Globulin 3.5 gm/dl (2.5-4.0); Glucose 93.0 mg/dl (70-99(Fasting)); Total Protein 6.6 gm/dl (6.0-8.3)
[2025-05-12 09:28] LABS: Quantiferon TB1 0.383 IU/mL; Quantiferon TB2 0.430 IU/mL
--- NOTE | 2025-05-12 10:41 | Hospitalist Progress Note ---
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 she's been on ocrevus for multiple sclerosis; since mar 2025, she's been having shortness of breath, greenish sputum, coughing and sinus pressure she did not improved with augmentin and zpack. in addition, she saw pulmonary Dr. Pacheco on 04/27/2025 and maintain on symbicort, she's s/p spirometry on 05/09/2025, she was having significant chest pain episode, high d-dimer and CTA negative for PE she was started on zosyn, doxycycyline, given she failed several oral regime for pneumonia; she was referral for inpatient admission for IV antibiotics, chest pain evaluation, she's has poor functional status, limited assess for specialist, and at risk for respiratory decompensation, worsening chest pain, 1. acute pneumonia 2. chest pain episode 2. hypertensive urgency 3. chest pain episode 4. recurrent pneumonia since mar 2025 5. MS on ocrevus 6. neuropathy 7. hx of fatty liver 9. left ventricular hyertrophy 10. ?? hx of ITP overall plan another 24-48 hours of IV antibiotics f/u on sputum culture repeat CT chest in 6-8 weeks f/u with neurology for whether to adjust her ocrevus injection for MS f/u with pulmonary 1. acute pneumonia , IV cefepime, doxycycyline, f/u on nasal MRSA, legionelle and strept antigen f/u IVIG on 05/11 c/w another 24 hours of IV cefepime, aggressive physiotherapy like dc home tomorrow with cefpodoxime hypertonic saline, mucinex, and duoneb patient on ocrevus for mutiple sclerosis f/u with immunology, f/u [facility] neurology and pulmonary repeat CT chest in 2 months 2. chest pain episode, CTA negative for PE 3. recurrent PNA, repeat CT chest in 2 months she was following with Dr. Pacheco 4. MS, on ocrevus spoke with neurology Dr. Martinez, who is agreeable for holding ocrevus she's on baclofen 20mg TID she's on gabapentin 300 TID for polyneuropathy 5. hypertension, continue with metoprolol XL 50mg daily 6. chronic dizziness, she's on MRN meclizine 25mg PRN 7. low vitamin D, vitamin C 5000 unit daily diet: regular code status: full code DVT prophylaxis: heparin (2) Immunocompromised: Admission and Anticipated Discharge Date Admission Date: May 09, 2025 Subjective she still has significant congestion, but WBC improving on cefepime s/p IVIG she will has ongoing IV cefepime for another 24 hours. and then dc home with cefpodoxime per infectious disease she will f/u immunology outpatient like dc home tomorrow Physical Exam Physical Exam: VITALS: Reviewed. WEIGHT/BMI reviewed. GEN: Healthy appearing, well-developed, NAD. PSYCH: Good Judgment. AOx3. Normal memory, mood, and affect. HEENT -Head: NC/AT; -Nose: Normal nares. -Mouth and throat: MMM. Normal gums, muc katiana, palate,. Good dentition. CV: RRR, no m/r/g. LUNGS: CTAB, no w/r/c. + for cough with deep inspiration; wheezing ABD: Soft, NT/ND, NBS, no masses or organomegaly. MSK: No deformities, Normal gait. EXT: No clubbing, cyanosis, or edema. NEURO: AAox3 Results & Data Results & Data Vital Signs (Past 12 Hours) Vital Signs Temp Pulse Pulse Resp BP BP Pulse Ox 05/12/25 07:28 36.3 C L 66 136/85 91 05/12/25 07:22 64 05/12/25 07:05 68 16 93 05/12/25 03:54 05/12/25 03:51 37.0 C 68 18 137/85 94 05/12/25 03:50 75 05/11/25 23:05 36.8 C 81 16 141/89 H 95 O2 Del Method 05/12/25 07:28 Room Air 05/12/25 07:22 05/12/25 07:05 Room Air 05/12/25 03:54 Room Air 05/12/25 03:51 Room Air 05/12/25 03:50 05/11/25 23:05 Room Air Laboratory Results Laboratory Results - last 72 hr 05/09/25 05/09/25 05/09/25 11:28 17:14 17:58 WBC 17.33 H RBC 4.49 Hgb 13.0 Hct 40.2 MCV 89.5 MCH 29.0 MCHC 32.3 RDW Std Deviation 44.6 RDW Coeff of Ruth 13.5 Plt Count 419 H MPV 9.7 Immature Gran % (Auto) 0.6 Neut % (Auto) 80.7 Lymph % (Auto) 8.1 Wetzel % (Auto) 10.1 Eos % (Auto) 0.3 Baso % (Auto) 0.2 Neut # (Auto) 13.97 H Lymph # (Auto) 1.41 Wetzel # (Auto) 1.75 H Eos # (Auto) 0.06 Baso # (Auto) 0.04 Immature Gran # (Auto) 0.10 PT 11.1 INR 1.1 D-Dimer 1130 H* Sodium 140 Potassium 3.9 Chloride 104 Carbon Dioxide 27 Anion Gap 9 BUN 20 Creatinine 1.09 Est Cr Clr Drug Dosing 69.5 eGFR 59.25 BUN/Creatinine Ratio 18.3 Glucose 108 H Lactate 1.0 Calcium 9.5 Magnesium 2.3 Total Bilirubin 1.0 AST 26 ALT 33 Alkaline Phosphatase 208 H Lactate Dehydrogenase Troponin I High Sens 12.5 7.7 D B-Natriuretic Peptide 31 Total Protein 7.5 Albumin 3.9 Globulin 3.6 Albumin/Globulin Ratio 1.1 Lipase 8 L Procalcitonin 0.77 H TSH 3.363 Urine Color Dark Yellow Urine Appearance Turbid A Urine pH 6.0 Ur Specific Boyers 1.022 Urine Protein 2+ H Urine Glucose (UA) Negative Urine Ketones Trace H Urine Blood 1+ H Urine Nitrite Negative Urine Bilirubin 1+ H Urine Urobilinogen Negative Ur Leukocyte Esterase 3+ H Urine WBC (Auto) >50 H Urine RBC (Auto) 3-5 H U Hyaline Cast (Auto) 0-2 U Epithel Cells (Auto) 3-5 H Urine Bacteria (Auto) 4+ H Urine Mucus Present A Urine Comment Nasal Screen MRSA (PCR) Negative Adenovirus (PCR) Not Detected B. pertussis DNA (PCR) Not Detected B.parapertussis DNA PCR Not Detected C. pneumoniae DNA (PCR) Not Detected Coronavirus OC43 (PCR) Not Detected Coronavirus HKU1 (PCR) Not Detected Coronavirus 229E (PCR) Not Detected SARS-CoV-2 (PCR) Not Detected Coronavirus NL63 (PCR) Not Detected HIV 1&2 Ab/P24 Ag 4thGn Human Metapneumovir PCR Not Detected Influenza Type A (PCR) Not Detected Influenza Type B (PCR) Not Detected M. pneumoniae (PCR) Not Detected Parainfluenza 1 (PCR) Not Detected Parainfluenza 2 (PCR) Not Detected Parainfluenza 3 (PCR) Not Detected Parainfluenza 4 (PCR) Not Detected RSV (PCR) Not Detected Entero/Rhino (PCR) Not Detected Anti-Streptolysin O Ab <20 TB Test (QFT) Gold Plus TB Test (QFT) Nil TB Test (QFT) Mitogen TB Test (QFT) Ag 1 TB Test (QFT) Ag 2 05/09/25 05/10/25 05/11/25 18:05 06:12 05:40 WBC 15.33 H 15.84 H 16.08 H RBC 4.30 4.06 L 3.97 L Hgb 13.0 11.7 L 11.6 L Hct 38.1 35.6 L 34.9 L MCV 88.6 87.7 87.9 MCH 30.2 28.8 29.2 MCHC 34.1 32.9 33.2 RDW Std Deviation 43.6 43.0 43.3 RDW Coeff of Ruth 13.5 13.3 13.5 Plt Count 350 396 413 H MPV 9.6 9.6 9.6 Immature Gran % (Auto) 0.6 Neut % (Auto) 93.6 Lymph % (Auto) 4.4 Wetzel % (Auto) 1.3 Eos % (Auto) 0.0 Baso % (Auto) 0.1 Neut # (Auto) 14.34 H Lymph # (Auto) 0.68 L Wetzel # (Auto) 0.20 Eos # (Auto) 0.00 Baso # (Auto) 0.02 Immature Gran # (Auto) 0.09 PT INR D-Dimer Sodium 139 140 Potassium 4.1 3.9 Chloride 108 H 107 Carbon Dioxide 22 23 Anion Gap 9 10 BUN 23 29 H Creatinine 0.88 1.27 H D Est Cr Clr Drug Dosing 86.2 59.7 eGFR 76.60 49.32 BUN/Creatinine Ratio 26.1 H 22.8 H Glucose 161 H 96 Lactate Calcium 9.1 9.2 Magnesium Total Bilirubin 0.4 D 0.5 AST 18 22 ALT 25 31 Alkaline Phosphatase 166 H 152 H Lactate Dehydrogenase Troponin I High Sens B-Natriuretic Peptide Total Protein 6.6 6.7 Albumin 3.3 L 3.4 Globulin 3.3 3.3 Albumin/Globulin Ratio 1.0 1.0 Lipase Procalcitonin TSH Urine Color Urine Appearance Urine pH Ur Specific Boyers Urine Protein Urine Glucose (UA) Urine Ketones Urine Blood Urine Nitrite Urine Bilirubin Urine Urobilinogen Ur Leukocyte Esterase Urine WBC (Auto) Urine RBC (Auto) U Hyaline Cast (Auto) U Epithel Cells (Auto) Urine Bacteria (Auto) Urine Mucus Urine Comment Nasal Screen MRSA (PCR) Adenovirus (PCR) B. pertussis DNA (PCR) B.parapertussis DNA PCR C. pneumoniae DNA (PCR) Coronavirus OC43 (PCR) Coronavirus HKU1 (PCR) Coronavirus 229E (PCR) SARS-CoV-2 (PCR) Coronavirus NL63 (PCR) HIV 1&2 Ab/P24 Ag 4thGn Human Metapneumovir PCR Influenza Type A (PCR) Influenza Type B (PCR) M. pneumoniae (PCR) Parainfluenza 1 (PCR) Parainfluenza 2 (PCR) Parainfluenza 3 (PCR) Parainfluenza 4 (PCR) RSV (PCR) Entero/Rhino (PCR) Anti-Streptolysin O Ab TB Test (QFT) Gold Plus TB Test (QFT) Nil TB Test (QFT) Mitogen TB Test (QFT) Ag 1 TB Test (QFT) Ag 2 05/11/25 05/11/25 05/12/25 11:04 12:23 06:07 WBC 8.33 RBC 3.78 L Hgb 11.1 L Hct 33.4 L MCV 88.4 MCH 29.4 MCHC 33.2 RDW Std Deviation 43.0 RDW Coeff of Ruth 13.2 Plt Count 355 MPV 9.6 Immature Gran % (Auto) Neut % (Auto) Lymph % (Auto) Wetzel % (Auto) Eos % (Auto) Baso % (Auto) Neut # (Auto) Lymph # (Auto) Wetzel # (Auto) Eos # (Auto) Baso # (Auto) Immature Gran # (Auto) PT INR D-Dimer Sodium 143 Potassium 4.2 Chloride 110 H Carbon Dioxide 26 Anion Gap 7 BUN 18 Creatinine 1.11 Est Cr Clr Drug Dosing 68.2 eGFR 57.97 BUN/Creatinine Ratio 16.2 Glucose 93 Lactate Calcium 9.0 Magnesium Total Bilirubin 0.5 AST 19 ALT 27 Alkaline Phosphatase 116 H Lactate Dehydrogenase 198 Troponin I High Sens B-Natriuretic Peptide Total Protein 6.6 Albumin 3.1 L Globulin 3.5 Albumin/Globulin Ratio 0.9 Lipase Procalcitonin TSH Urine Color Urine Appearance Urine pH Ur Specific Boyers Urine Protein Urine Glucose (UA) Urine Ketones Urine Blood Urine Nitrite Urine Bilirubin Urine Urobilinogen Ur Leukocyte Esterase Urine WBC (Auto) Urine RBC (Auto) U Hyaline Cast (Auto) U Epithel Cells (Auto) Urine Bacteria (Auto) Urine Mucus Urine Comment Nasal Screen MRSA (PCR) Adenovirus (PCR) B. pertussis DNA (PCR) B.parapertussis DNA PCR C. pneumoniae DNA (PCR) Coronavirus OC43 (PCR) Coronavirus HKU1 (PCR) Coronavirus 229E (PCR) SARS-CoV-2 (PCR) Coronavirus NL63 (PCR) HIV 1&2 Ab/P24 Ag 4thGn Negative Human Metapneumovir PCR Influenza Type A (PCR) Influenza Type B (PCR) M. pneumoniae (PCR) Parainfluenza 1 (PCR) Parainfluenza 2 (PCR) Parainfluenza 3 (PCR) Parainfluenza 4 (PCR) RSV (PCR) Entero/Rhino (PCR) Anti-Streptolysin O Ab TB Test (QFT) Gold Plus NEGATIVE TB Test (QFT) Nil 0.380 TB Test (QFT) Mitogen 10.000 TB Test (QFT) Ag 1 0.383 TB Test (QFT) Ag 2 0.430 PG Care Time/CCT Total # of Minutes Spent Total Time Spent with Patient: Total time spent is greater than 50% in coordination of care (as documented) at patient's floor/unit and/or counseling patient: Coding Level of Care Code 94575 SUB INP/OBS CARE 08/07MIN Diagnoses Recurrent pneumonia J18.9 Immunocompromised D84.9 Time Spent (min) 20
--- NOTE | 2025-05-12 14:54 | Infectious Disease Progress Nt ---
Date of Service May 12, 2025 Assessment & Plan (1) Recurrent pneumonia: (2) Hypogammaglobulinemia: Plan ID Problem List: # Cough, congestion # Possible pneumonia # Possible viral infection # Hypogammaglobulinemia # Multiple sclerosis on ocrelizumab # Antibiotic allergy: sulfa (rash) Impression: Danyelle Warren is a 59-year-old woman with history of MS dx 2013 on ocrelizumab, Raynauds syndrome, who presents to [facility] on 05/10/25 with shortness of breath in the setting of 2 months of cough and congestion. ID is consulted for evaluate for cough and possible respiratory infection. The patient has cough and nasal congestion for the last ~2 months. She reports that her became sick after returning from a trip to [place] in late February 2025, and she became sick shortly after. Since that time, she has been having ongoing cough and nasal congestion. She has a cough that is intermittently mildly productive of sputum. She does not have other sick contacts; her son and grandson have not been sick. She had been evaluated for this previously, and was given a course of Augmentin and azithromycin ~2 weeks [employer] without improvement. No fevers, chills, n/v/d, urinary symptoms. Her MS symptoms feel under control, though she has ongoing nerve pain. She had seen Dr. Pacheco of pulmonary as an outpatient, who send IgG levels d/t concern for hypogammaglobulinemia in the setting of ocrelizumab. Her IgG level was 385 on 04/27/25 (IgG1 263, IgG2 97, IgG3 37, and IgG4 <0.5) with normal IgA and IgM <20; she has not yet been given Ig replacement. She has also been on Symbicort. Upon arrival, afebrile, SpO2 93 - 100% on RA. WBC 17.33 with neutrophilia and L shift, Hgb 13 plts 419 Cr 1.09 LFTs wnl. Procal 0.77. She has not been febrile and has not been hypoxemic throughout her admission. CXR negative for acute cardiopulmonary process. D-dimer was elevated at 1130 and so CTA chest was obtained, which was negative for PE, showed patchy right lung ground glass opacities are suspicious for infection/pneumonia. The patient was started on doxycycline and pip-tazo. MRSA nares negative. The patient was born in [place] and has lived in [place] her whole life. No recent travel outside the country in the last few years. No known contacts with TB. No pets, no exposure to any animals including wild animals or livestock. Walks around outside, no recent hiking or camping. 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 At the time of evaluation, she thinks that she is feeling slightly better, with improved cough. She still has a slight amount of pressure in her chest. Discussion Pt presenting with ~2 months of cough and congestion. She does not have hypoxemi a. Her CT chest showed slight R-sided patchy GGOs c/f infection. Although her RPP was negative, her presentation is suggestive of a possible prolonged viral infection, given that her was sick in Feb 2025, after which she became sick and has been symptomatic since that time. Also consider the possibility of atypical bacterial infection (e.g., Legionella). Lower suspicion for PJP at this time; pt has been on an anti-CD20 agent and has not required significant systemic steroid use recently, and is currently not hypoxemic. Lower risk for fungal infection. Will follow bacterial sputum Cx. Will nevertheless follow CrAg, Histo, Aspergillus, and Legionella testing. Given elevated WBC and slightly elevated procal, reasonable to continue cefepime and doxycycline to cover for possible superimposed bacterial infection. Pts recent IgG levels were in the 300s, and thus she has hypogammaglobulinemia. Given her 2-month history of cough and congestion, and possible longstanding mild ?viral infection, would recommend to give IVIG (discussed with Dr. Pacheco and Dr. Martinez), and would refer to outpatient immunology to evaluate for possible ongoing Ig replacement. She does have a history of Raynauds. Can follow autoimmune testing as well. Recommendations: - Reasonable to continue cefepime 2g IV q8h and doxycycline 100 mg PO BID for now. If discharging, can change to cefpodoxime 400 mg PO BID and doxycycline 100 mg PO BID to complete a 7-day course (through - S/p one-time dose of IVIG on 04/14 - Refer to immunology for outpatient evaluation of potential need for ongoing Ig replacement - F/u serum CrAg, Histoplasma UrAg, aspergillus serum Ag, Legionella UrAg, - F/u 05/10 sputum Cx - F/u 05/09 BCx until finalized to ensure remains negative - Continue close follow-up with neurology (Dr. Martinez) and pulmonary (Dr. Pacheco) ID will continue to follow. Emelia Miles MD, S Infectious Diseases [facility]/ID Connect ID Connect direct line: [phone] Admission and Anticipated Discharge Date Admission Date: May 09, 2025 Subjective This patient recommendation is based on a telemedicine consult request which was completed asynchronously through chart review and information provided by the primary physician. The patient was not seen or examined today. The evaluation is consultative in nature and all patient care and treatment decisions can either be accepted or rejected by the patient's primary hospital-based treating physician using their own independent medical judgment for their patient. Time Spent Reviewing Chart: 31+ minutes - Afebrile, SpO2 91 95% on RA - Received IVIG on 05/11 - I discussed with Dr. Low, pt still having some congestion, tentative discharge tomorrow if doing well Results & Data Vital Signs (Past 12 Hours) Vital Signs Temp Pulse Pulse Resp BP Pulse Ox O2 Del Method 05/12/25 11:32 36.5 C 89 162/95 H 95 Room Air 05/12/25 07:28 36.3 C L 66 136/85 91 Room Air 05/12/25 07:22 64 05/12/25 07:05 68 16 93 Room Air 05/12/25 03:54 Room Air 05/12/25 03:51 37.0 C 68 18 137/85 94 Room Air 05/12/25 03:50 75 Laboratory Results Diagnostics: 05/10 TTE: LVEF normal, borderline LA enlargement, no significant valvular heart disease 05/09/25 CTA chest 1. No definite pulmonary emboli identified. 2. Mild patchy right lung groundglass opacities, likely infectious or inflammatory. 3. Mild cardiomegaly. Micro Data: 05/12 serum CrAg: PEND 05/12 Aspergillus serum Ag: PEND 05/11 Quantiferon: neg 05/11 Histo UrAg: PEND 05/11 Legionella UrAg: PEND 05/11 HIV: neg 05/10 sputum Cx: light normal jorge 05/09 BCx x2: NGTD 05/09 MRSA nares: neg 05/09 full RPP: neg 05/09 UCx: E. coli (R-amp, otherwise S including S-cefazolin, ceftriaxone, cipro, levo, TMP/SMX) Antibiotic Summary: cefepime (05/10 present) doxycycline ( present) prior pip-tazo (05/09)
[2025-05-13 06:21] LABS: Hematocrit (blood only) 32.7 % (37.0-47.0); Hemoglobin 11.1 g/dl (12.0-16.0); Mean Corpuscular Hemoglobin 29.6 pg (25.0-34.0); Mean Corpuscular Volume 87.2 fL (80.0-100.0); Platelet Count 346 K/uL (130-400); RDW Standard Deviation 42.2 fL (36.4-46.3); Red Blood Count 3.75 M/uL (4.20-5.40); White Blood Count 9.67 K/ul (4.8-10.8)
[2025-05-13 06:35] LABS: Anion Gap 8.0 (3-11); Blood Urea Nitrogen 14.0 mg/dl (6-23); Calcium 8.7 mg/dl (8.6-10.3); Carbon Dioxide 22.0 mmol/L (21-32); Chloride 112.0 mmol/L (98-107); Creatinine Clr Calc Pharmacy 79.3 ml/min; Glucose 90.0 mg/dl (70-99(Fasting)); Potassium 4.0 mmol/L (3.5-5.1); Sodium 142.0 mmol/L (136-145)
[2025-05-13 07:10] VITALS: RESP 18
[2025-05-13 11:36] VITALS: TEMP 97.9; O2SAT 98
[2025-05-13 12:00] VITALS: BP 143/88; PULSE 82
--- NOTE | 2025-05-13 13:00 | Infectious Disease Progress Nt ---
Date of Service May 13, 2025 Assessment & Plan (1) Recurrent pneumonia: (2) Hypogammaglobulinemia: Plan ID Problem List: # Cough, congestion, shortness of breath, improving # Possible pneumonia # Possible viral infection # Hypogammaglobulinemia, s/p IVIg on 05/11 # Multiple sclerosis on ocrelizumab # Antibiotic allergy: sulfa (rash) Impression: Danyelle Warren is a 59-year-old woman with history of MS dx 2013 on ocrelizumab, Raynauds syndrome, who presents to [facility] on 05/10/25 with shortness of breath in the setting of 2 months of cough and congestion. ID is consulted for evaluate for cough and possible respiratory infection. The patient has cough and nasal congestion for the last ~2 months. She reports that her became sick after returning from a trip to [place] in late February 2025, and she became sick shortly after. Since that time, she has been having ongoing cough and nasal congestion. She has a cough that is intermittently mildly productive of sputum. She does not have other sick contacts; her son and grandson have not been sick. She had been evaluated for this previously, and was given a course of Augmentin and azithromycin ~2 weeks [employer] without improvement. No fevers, chills, n/v/d, urinary symptoms. Her MS symptoms feel under control, though she has ongoing nerve pain. She had seen Dr. Pacheco of pulmonary as an outpatient, who send IgG levels d/t concern for hypogammaglobulinemia in the setting of ocrelizumab. Her IgG level was 385 on 04/27/25 (IgG1 263, IgG2 97, IgG3 37, and IgG4 <0.5) with normal IgA and IgM <20; she has not yet been given Ig replacement. She has also been on Symbicort. Upon arrival, afebrile, SpO2 93 - 100% on RA. WBC 17.33 with neutrophilia and L shift, Hgb 13 plts 419 Cr 1.09 LFTs wnl. Procal 0.77. She has not been febrile and has not been hypoxemic throughout her admission. CXR negative for acute cardiopulmonary process. D-dimer was elevated at 1130 and so CTA chest was obtained, which was negative for PE, showed patchy right lung ground glass opacities are suspicious for infection/pneumonia. The patient was started on doxycycline and pip-tazo. MRSA nares negative. The patient was born in [place] and has lived in [place] her whole life. No recent travel outside the country in the last few years. No known contacts with TB. No pets, no exposure to any animals including wild animals or livestock. Walks around outside, no recent hiking or camping. 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 At the time of evaluation, she thinks that she is feeling slightly better, with improved cough. She still has a slight amount of pressure in her chest. Discussion Pt presenting with ~2 months of cough and congestion. She does not have hypoxemia. Her CT chest showed slight R-sided patchy GGOs c/f infection. Although her RPP was negative, her presentation is suggestive of a possible prolonged viral infection, given that her was sick in Feb 2025, after which she became sick and has been symptomatic since that time. Also consider the possibility of atypical bacterial infection (e.g., Legionella). Low suspicion for PJP at this time; pt has been on an anti-CD20 agent and has not required significant systemic steroid use recently, and is currently not hypoxemic. Lower risk for fungal infection. Will follow bacterial sputum Cx. Will nevertheless follow CrAg, Histo, Aspergillus, and Legionella testing. Given elevated WBC and slightly elevated procal, recommended to continue cef epime and doxycycline to cover for possible superimposed bacterial infection. Pts recent IgG levels were in the 300s, and thus she has hypogammaglobulinemia. Given her 2-month history of cough and congestion, and possible longstanding mild ?viral infection, recommended IVIG (discussed with Dr. Pacheco and Dr. Martinez), and would refer to outpatient immunology to evaluate for possible ongoing Ig replacement. She does have a history of Raynauds. Can follow autoimmune testing as well. While on abx and after receiving IVIg, with significant improvement in her symptoms, and resolution of her WBC count. Reasonable to complete a course of IV abx (can change to PO cefpodoxime/doxycycline on d/c), and follow-up for ongoing Ig replacement. Recommendations: - Reasonable to continue cefepime 2g IV q8h and doxycycline 100 mg PO BID for now. If discharging, can change to cefpodoxime 400 mg PO BID and doxycycline 100 mg PO BID to complete a 7-day course (through - S/p one-time dose of IVIG on 05/11 - Refer to immunology for outpatient evaluation of potential need for ongoing Ig replacement - F/u serum CrAg, Histoplasma UrAg, aspergillus serum Ag, Legionella UrAg - F/u 05/10 sputum Cx - F/u 05/09 BCx until finalized to ensure remains negative - Continue close follow-up with neurology (Dr. Martinez) and pulmonary (Dr. Pacheco) ID will continue to follow. Please contact us with any questions. Over the weekend, the on-call ID provider can be reached at [phone] for urgent/time-sensitive questions. Dr. Jill Mendes will resume care of the ID service on Friday. Emelia Miles MD, S Infectious Diseases [facility]/ID Connect ID Connect direct line: [phone] Admission and Anticipated Discharge Date Admission Date: May 09, 2025 Subjective This patient recommendation is based on a telemedicine consult request which was completed asynchronously through chart review and information provided by the primary physician. The patient was not seen or examined today. The evaluation is consultative in nature and all patient care and treatment decisions can either be accepted or rejected by the patient's primary hospital-based treating physician using their own independent medical judgment for their patient. Time Spent Reviewing Chart: 21 - 30 minutes - Afebrile, SpO2 98% on RA - Pt with significantly improved breathing today - Discussed with Dr. Low, pt discharging today Results & Data Vital Signs (Past 12 Hours) Vital Signs Temp Pulse Pulse Pulse Resp BP BP 05/13/25 11:59 36.6 C 82 54 L 18 147/93 H 143/88 H 05/13/25 11:36 36.6 C 54 L 18 147/93 H 05/13/25 07:40 05/13/25 07:18 64 05/13/25 07:10 36.5 C 67 18 143/88 H 05/13/25 07:03 68 16 05/13/25 03:49 36.3 C L 68 18 140/90 Pulse Ox O2 Del Method 05/13/25 11:59 98 05/13/25 11:36 98 Room Air 05/13/25 07:40 Room Air 05/13/25 07:18 05/13/25 07:10 92 Room Air 05/13/25 07:03 93 Room Air 05/13/25 03:49 94 Room Air Laboratory Results Diagnostics: 05/10 TTE: LVEF normal, borderline LA enlargement, no significant valvular heart disease 05/09/25 CTA chest 1. No definite pulmonary emboli identified. 2. Mild patchy right lung groundglass opacities, likely infectious or inflammatory. 3. Mild cardiomegaly. Micro Data: 05/12 sputum PJP PCR: PEND 05/12 serum CrAg: PEND 05/12 Aspergillus serum Ag: PEND 05/11 Quantiferon: neg 05/11 Histo UrAg: PEND 05/11 Legionella UrAg: PEND 05/11 HIV: neg 05/10 sputum Cx: light normal jorge 05/09 BCx x2: NGTD 05/09 MRSA nares: neg 05/09 full RPP: neg 05/09 UCx: E. coli (R-amp, otherwise S including S-cefazolin, ceftriaxone, cipro, levo, TMP/SMX) Antibiotic Summary: cefepime (05/10 present) doxycycline ( present) prior pip-tazo (05/09)
--- NOTE | 2025-05-13 18:01 | Discharge Summary ---
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 and immunocompromise status she was switch to cefepime she continue to improve for 48 hours, and was provided with cefpodoxime 400mg BID and doxycycline her blood culture remained negative she will need f/u with serum Crypt antigen, histolasma antigen, aspergillus antigen and legionelle urine she will need f/u with sputum culture she was advised to f/u with immunology she was advise to f/u with neurologist Dr. 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 she's been on ocrevus for multiple sclerosis; since mar 2025, she's been having shortness of breath, greenish sputum, coughing and sinus pressure she did not improved with augmentin and zpack. in addition, she saw pulmonary Dr. Pacheco on 04/27/2025 and maintain on symbicort, she's s/p spirometry on 05/09/2025, she was having significant chest pain episode, high d-dimer and CTA negative for PE she was started on zosyn, doxycycyline, given she failed several oral regime for pneumonia; she was referral for inpatient admission for IV antibiotics, chest pain evaluation, she's has poor functional status, limited assess for specialist, and at risk for respiratory decompensation, worsening chest pain, 1. acute pneumonia 2. chest pain episode 2. hypertensive urgency 3. chest pain episode 4. recurrent pneumonia since mar 2025 5. MS on ocrevus 6. neuropathy 7. hx of fatty liver 9. left ventricular hyertrophy 10. ?? hx of ITP overall plan another 24-48 hours of IV antibiotics f/u on sputum culture repeat CT chest in 6-8 weeks f/u with neurology for whether to adjust her ocrevus injection for MS f/u with pulmonary 1. acute pneumonia , IV cefepime, doxycycyline, f/u on nasal MRSA, legionelle and strept antigen f/u IVIG on 05/11 c/w another 24 hours of IV cefepime, aggressive physiotherapy like dc home tomorrow with cefpodoxime hypertonic saline, mucinex, and duoneb patient on ocrevus for mutiple sclerosis f/u with immunology, f/u wtih neurology and pulmonary repeat CT chest in 2 months 2. chest pain episode, CTA negative for PE 3. recurrent PNA, repeat CT chest in 2 months she was following with Dr. Pacheco 4. MS, on ocrevus spoke with neurology Dr. Martinez, who is agreeable for holding ocrevus she's on baclofen 20mg TID she's on gabapentin 300 TID for polyneuropathy 5. hypertension, continue with metoprolol XL 50mg daily 6. chronic dizziness, she's on MRN meclizine 25mg PRN 7. low vitamin D, vitamin C 5000 unit daily diet: regular code status: full code DVT prophylaxis: heparin (2) Immunocompromised: Notes For Next Care Provider f/u on fungal titer f/u on sputum culture referral to allergy immunology repeat CT chest in 3-4 months Admission HPI Per Admitting Provider Danyelle Gibson is a 59 yo woman with PMH of MS (on ocrevus), obesity, ?? 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 since mar 2025, she's been having recurrent shortness of breath, greenish sputum, and wheezing and sinus pressure, she's was seeing pulmonary Dr. 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 she's been on symbicort since mar 2025, she's been having recurrent shortness of breath, congestion, sinus pressure and greenish sputum she was treated with augmentin and zpack but has limited improvement. on 05/09/2025, she developed chest discomfort, elevated d-dimer and came to our ED her CTA show right side pneumonia, WBC of 17, given she's has unstable blood pressure of 190/110, failed oral antibiotics, and inhale steroid she was referral to admission for IV antibiotics, hypertonic saline, cardiac evaluation she was started on zosyn by our ED collegue on interview; she's denied any palpitation for her dyspnea of breathing, denied muscle achiness, denied traveling, denied any pet exposure. no diarrhea. no sick contact no hx of TB Discharge Exam VITALS: Reviewed. WEIGHT/BMI reviewed. GEN: Healthy appearing, well-developed, NAD. PSYCH: Good Judgment. AOx3. Normal memory, mood, and affect. HEENT -Head: NC/AT; NECK: Supple, with no masses. CV: RRR, no m/r/g. LUNGS: CTAB, no w/r/c. congessted breath sound ABD: Soft, NT/ND, NBS, no masses or organomegaly. : N/A MSK: No deformities, Normal gait. EXT: No clubbing, cyanosis, or edema. NEURO: AAox3 Discharge Plan Discharge Items Patient Disposition: Home - Self-Care Reason For Visit: RECURRENT PNA, BRONCHITIS, Discharge Diagnosis: pneumonia immuncompromised Condition on Discharge: Fair Activity: Resume your previous activity Non-emergency contact: Neurologist and Crowning Inspector Call non-emergency contact if: your symptoms worsen, you have a fever and your rectal temperature is above 100.4 Follow-up/Referrals: Lili Mosquera [Primary Care Provider] - Diet: Regular Addtl Attending Provider Instructions: you will follow up with immunology you will work with Dr Martinez about neurology appointment Pending Studies at Discharge: Yes Studies:: repeat CBC and BMP in 5-7 days Stand-Alone Forms: My [employer], Smoking Cessation Medications and DC Order Prescriptions: New rosuvastatin 20 mg Tablet 20 mg PO QAM 30 Days Qty: 30 0RF sodium chloride 7 % Solution For Nebulization 4 ml NEB BIDR 30 Days Qty: 150 0RF cefpodoxime 200 mg tablet 400 mg PO Q12H 7 Days Qty: 28 0RF Rx Instructions: must administer with a meal/food doxycycline hyclate 100 mg tablet 100 mg PO BID 7 Days Qty: 14 0RF guaifenesin [Mucinex] 600 mg tablet extended release 12hr 600 mg PO BID 15 Days Qty: 30 0RF doxycycline hyclate 100 mg Capsule 100 mg PO BID 8 Days Qty: 16 0RF sodium chloride 7 % solution for nebulization 1 inh inhalation BID 30 Days Qty: 240 0RF Continued nitroglycerin [Nitrostat] 0.4 mg Tablet, Sublingual 0.4 mg sublingual UD PRN (Reason: Chest Pain) Qty: 0 Rx Instructions: PLACE ONE TABLET UNDER THE TONGUE EVERY 5 MINUTES FOR UP TO 3 DOSES OVER 15 MINUTES IF NEEDED FOR CHEST PAIN metoprolol succinate 50 mg Tablet Extended Release 24 Hr 50 mg PO QAM Qty: 90 ondansetron HCl 4 mg tablet 4 mg PO BID PRN (Reason: nausea and vomiting) Qty: 60 1RF meclizine 25 mg tablet 25 mg PO BID PRN (Reason: dizziness) Qty: 30 0RF baclofen 20 mg tablet 20 mg PO TID 90 Days Qty: 270 1RF albuterol sulfate 90 mcg/actuation HFA aerosol inhaler 1 inh INH Q6H PRN (Reason: shortness of breath or wheezing) Qty: 18 3RF budesonide-formoterol [Symbicort] 80-4.5 mcg/actuation HFA aerosol inhaler 2 puff inhalation BID Qty: 10.2 2RF gabapentin 300 mg capsule 300 mg PO QID 90 Days Qty: 360 3RF No Action cholecalciferol (vitamin D3) 5,000 unit Capsule 5,000 unit PO QAM Qty: 0 Ocrevus 30 mg/mL solution 600 mg IV .COMPLEX Qty: 20 1RF Rx Instructions: 600 mg intravenously; 600mg IV every 6 months. 30 minutes before each infusion,premedicate w/ methylprednisolone 100mg iv,Diphenhydramine 25mg iv,and Actaminophen 500mg PO. ; May give an additional 25mg diphenhydramine IV during infusion PRN solifenacin [Vesicare] 10 mg tablet 10 mg PO QAM Qty: 90 3RF Discharge Orders: Discharge Order (Routine); Ordered 05/13/25 Ordered By: Andrea Ramsay/Other Patient Handouts: Immunocompromised Patients Dc, ED Pneumonia (Adult) Admission Data Admit Date/Time: 05/09/25 17:31 Attending Provider: Andrea Low Admit Provider: Andrea Low Primary Care Provider: Lili Mosquera Other Providers: Andrea Low Other Interventions: Discharge Summary Assessment (RN) Last Done: 05/13/25 11:59 Hospital Stay Data Consultations 05/09/25 17:05 ED Decision to Admit Stat 05/11/25 08:08 Consult Infectious Diseases Routine Diagnostic Imagining Performed 05/09/25 13:56 CT angio chest PE protocol Stat Pending Results Patient Have Any Pending Studies at Discharge: Yes Discharge Instructions Given to Patient (Per Discharging Provider) you will follow up with immunology you will work with Dr Martinez about neurology appointment Total Time Total Time Spent Total Time Spent (In Minutes): 20 Coding Level of Care Code 32156 IN/OBS DISCH 30 MIN/LESS Diagnoses Recurrent pneumonia J18.9 Immunocompromised D84.9 Time Spent (min) 20
[2025-05-16 17:47] LABS: Aspergillus Antigen, Serum Not Detected (Not Detected)
[2025-05-16 17:47] LABS: ANCA Screen Negative (Negative); Anti Nuclear Antibody Screen POSITIVE (NEGATIVE); Myeloperoxidase Ab <1.0 AI (<1.0)
[2025-05-17 05:12] LABS: Pneumocystis jirovecii PCRQual NOT DETECTED; Pneumocystis jirovecii Source SPUTUM
[2025-05-17 13:42] LABS: Source Serum
[2025-05-17 16:12] LABS: ANA Pattern Cytoplasmic; ANA Titer 1:40 titer
== END 2025-05-13 13:21 | disposition home or self-care (01) | DRG 194 ==
LOC: ED 11:06 → EDINP 17:31 → INTOOBSV 17:31 → 2W 20:54